=== PATIENT | male | born 1970 | race Caucasian/White ===

== ENCOUNTER → 2019-01-10 | Outpatient (CLI) | payer BC ==
[2019-01-10 16:43] LABS: T4, Free (Free Thyroxine) 1.1 ng/dL (0.80-1.80)
== END ==
LOC: LABWHC1 09:29
PROVIDERS: ATTEND Internal Medicine Endocrinology, Diabetes & Metabolism
DX: E05.90 Thyrotoxicosis, unspecified without thyrotoxic crisis or storm (principal)
CPT/HCPCS: 36415; 84439; 84443; 84445; 84480

== ENCOUNTER → 2019-01-23 | Outpatient (CLI) | payer BC ==
--- NOTE | 2019-01-23 12:11 | US ---
EXAMINATION TYPE: US thyroid st tissue head/neck DATE OF EXAM: 01/23/2019 COMPARISON: NONE CLINICAL HISTORY: E05.90 Subclinical hyperthyroidism. GLAND SIZE: Right Lobe: 4.5 x 1.4 x 1.8 cm Overall Parenchyma: heterogenous Left Lobe: 4.0 x 1.9 x 1.7 cm Overall Parenchyma: heterogeneous Isthmus Thickness: 0.4 cm NODULES RIGHT: # of nodules measured on right: 0 LEFT: # of nodules measured on left: 0 ISTHMUS: # of nodules measured in the isthmus: 0 Bilateral neck scanned, no evidence of lymphadenopathy. IMPRESSION: Heterogeneous thyroid tissue suggestive of thyroiditis.
--- NOTE | 2019-01-24 09:56 | NM ---
EXAMINATION TYPE: NM thyroid image w uptake DATE OF EXAM: 01/24/2019 COMPARISON: 01/23/2019 ultrasound HISTORY: Hyperthyroidism TECHNIQUE: Thyroid iodine uptake is calculated and images performed after the oral administration of 315 uCi 1-123 Capsule. FINDINGS: There is heterogeneous distribution of activity throughout the gland. The 4 hour iodine up take is calculated at 6.5% (normal range 8-14%). The 24-hour iodine uptake is calculated at 16.5% (no rmal range 15-35%). IMPRESSION: 1. Findings compatible with borderline hypothyroidism. 2. Heterogeneous uptake is compatible with the ultrasound findings of thyroiditis. No definite discre te hot or cold nodules.
== END ==
LOC: RADUSMAIN 08:27
PROVIDERS: ATTEND Internal Medicine Endocrinology, Diabetes & Metabolism
DX: E07.9 Disorder of thyroid, unspecified (principal); E05.90 Thyrotoxicosis, unspecified without thyrotoxic crisis or storm
CPT/HCPCS: 76536; 78014; A9516

== ENCOUNTER → 2019-05-18 | Outpatient (CLI) | payer BC | END | disposition home or self-care (01) | LOC: LABWHC1 10:18 | PROVIDERS: ATTEND Internal Medicine Endocrinology, Diabetes & Metabolism | DX: E05.90 Thyrotoxicosis, unspecified without thyrotoxic crisis or storm (principal) | CPT/HCPCS: 36415; 84439; 84443; 84480 ==

== ENCOUNTER → 2019-11-29 | Outpatient (CLI) | payer BC ==
[2019-11-29 19:11] LABS: T4, Free (Free Thyroxine) 1.4 ng/dL (0.80-1.80)
== END | disposition home or self-care (01) ==
LOC: LABWHC1 11:44
PROVIDERS: ATTEND Internal Medicine Endocrinology, Diabetes & Metabolism
DX: E05.90 Thyrotoxicosis, unspecified without thyrotoxic crisis or storm (principal)
CPT/HCPCS: 36415; 84439; 84443; 84480

== ENCOUNTER 2023-06-11 17:29 | Inpatient (IN) | payer BC ==
[2023-06-11] MEDS ORDERED: SODIUM CHLORIDE 0.9% 1,000 ML IV STA (17:32)
[2023-06-11] MEDS ORDERED: HEPARIN SODIUM 1,000 UN/ML (10ML VL) IV ONE ×2 (17:32→18:16)
[2023-06-11] MEDS ORDERED: VERAPAMIL 2.5 MG/ML 2 ML AMP ONE (17:43)
[2023-06-11] MEDS ORDERED: HEPARIN SODIUM 1,000 UN/ML (10ML VL) ONE (17:43)
[2023-06-11] MEDS ORDERED: fentaNYL (PF) 50 MCG/ML 2 ML AMP ONE (17:43)
[2023-06-11] MEDS ORDERED: IV FLUID CONTINUATION 1,000 ML IV ONE (17:46)
--- NOTE | 2023-06-11 17:53 | ED ---
General Adult HPI - General Chief complaint: Chest Pain Stated complaint: poss STEMI Source: patient, RN notes reviewed, old records reviewed Mode of arrival: EMS Limitations: no limitations - History of Present Illness Initial comments: Patient is a 53-year-old male who presents emergency Department as a STEMI activation. Patient is a history of atrial fibrillation, COPD has been having some dyspnea throughout the week but had sudden onset severe left-sided chest pain starting approximately an hour and a half ago. Was mowing the lawn when it started. His found him on the ground at home and they called EMS. EKG reveals atrial fibrillation with findings suspicious for STEMI with elevations in 2, 3, aVF with reciprocal depressions in 1 and aVL. STEMI pager was a ctivated prior to hospital arrival. I spoke with Dr. Graf who was in agreement with the plan. When patient arrived, was complaining of left sided chest pain. States it was sudden in onset. Describes it as a crushing chest pain. No radiation. Has not expenses pain previously. No history of cardiac stents. We have no prior EKG for comparison in our system. States he has been compliant with medications. Is on blood thinners for A. fib. To become diaphoretic when the chest pain started he states as well as mildly nauseous. Denies any other acute complaints at this time. Presents for further evaluation. - Related Data Home Medications Medication Instructions Recorded Confirmed Rivaroxaban [Xarelto] 20 mg PO DAILY 06/11/23 06/11/23 Sacubitril/Valsartan [Entresto 24 1 tab PO BID 06/11/23 06/11/23 mg-26 mg Tablet] carvediloL [Coreg] 25 mg PO BID-W/MEALS 06/11/23 06/11/23 Allergies Allergy/AdvReac Type Severity Reaction Status Date / Time No Known Allergies Allergy Verified 06/11/23 18:09 Review of Systems ROS Statement: Those systems with pertinent positive or pertinent negative responses have been documented in the HPI. Review of Systems: CONST: Denies fever EYES: Denies blurry vision ENT: Denies nasal congestion C/V: Endorses chest pain RESP: Denies shortness of breath GI: Denies abdominal pain : Denies dysuria SKIN: Denies rash. MSK: Denies joint pain. NEURO: Denies headache ROS Other: All systems not noted in ROS Statement are negative. Past Medical History Additional Past Medical History / Comment(s): a fib, Past Surgical History: Unable to Obtain Past Psychological History: Unable to Obtain Smoking Status: Current every day smoker Past Alcohol Use History: Unable to Obtain Past Drug Use History: Unable to Obtain General Exam - General Exam Comments Initial Comments: General: Appears in severe distress and discomfort. HEAD: Normal with no signs of head trauma. EYES: PERRLA, EOMI, conjunctiva normal, no discharge. ENT: Hearing grossly intact, normal oropharynx. RESPIRATORY: Clear breath sounds bilaterally. No wheezes, rales, or rhonchi. C/V: Irregular rate and rhythm. S1 and S2 auscultated, no edema, peripheral pulses 2+ and intact throughout ABD: Abd is soft, nontender, nondistended EXT: Normal range of motion, no obvious deformity SKIN: No rashes or lesions observed on exposed skin. NEURO: Alert and oriented 4. Limitations: no limitations Course Vital Signs 06/11/23 06/11/23 17:30 17:33 Temperature 96.9 F L Pulse Rate 150 H Pulse Rate [ 137 H Service Station Console Operator ] Respiratory 20 Rate Blood Pressure 95/65 Medical Decision Making - Medical Decision Making Was pt. sent in by a medical professional or institution (, PA, SOLAR MECHANICAL ENGINEER, urgent care, hospital, or alf...) When possible be specific @ -No Did you speak to anyone other than the patient for history (EMS, parent, family, police, friend...)? What history was obtained from this source @ -Spoke with EMS who corroborate the patient's history. Did you review nursing and triage notes (agree or disagree)? Why? @ -I reviewed and agree with nursing and triage notes Were old charts reviewed (outside hosp., previous admission, EMS record, old EKG, old radiological studies, urgent care reports/EKG's, alf records)? Report findings @ -Attempted to review old charts. No prior EKG for comparison. Differential Diagnosis (chest pain, altered mental status, abdominal pain women, abdominal pain men, vaginal bleeding, weakness, fever, dyspnea, syncope, headache, dizziness, GI bleed, back pain, seizure, CVA, palpatations, mental health, musculoskeletal)? @ -Differential Chest Pain: Stable Angina, Unstable Angina, STEMI, NSTEMI Aortic Dissection, Pneumothorax, Musculoskeletal, Esophageal Spasm GERD, Cholecystitis, Pancreatitis, Zoster, this is not meant to be an all-inclusive list. EKG interpreted by me (3pts min.). @ -As above X-rays interpreted by me (1pt min.). @ -Chest x-ray reveals no obvious acute cardio pulmonary process. CT interpreted by me (1pt min.). @ -None done U/S interpreted by me (1pt. min.). @ -None done What testing was considered but not performed or refused? (CT, X-rays, U/S, labs)? Why? @ -None What meds were considered but not given or refused? Why? @ -Consider nitroglycerin tablets over patient appears to have inferior wall MO and therefore we will avoid at this time to avoid rapidly reducing his preload. Did you discuss the management of the patient with other professionals (professionals i.e. , PA, SOLAR MECHANICAL ENGINEER, lab, RT, psych nurse, child welfare social worker, cue worker, teacher, business enterprise officer, case operator)? Give summary @ -Discussed with cardiology Dr. Graf who presented at bedside as well as over the phone was in agreement with plan for cardiac catheterization. Spoke with [facility] Dr. Peraza accepting physician who admitted the patient. Was smoking cessation discussed for >3mins.? @ -No Was critical care preformed (if so, how long)? @ -Yes, 15 minutes Were there social determinants of health that impacted care today? How? (Homelessness, low income, unemployed, alcoholism, drug addiction, transportation, low edu. Level, literacy, decrease access to med. care, halfway, rehab)? @ -No Was there de-escalation of care discussed even if they declined (Discuss DNR or withdrawal of care, Hospice)? DNR status @ -No What co-morbidities impacted this encounter? (DM, HTN, Smoking, COPD, CAD, Cancer, CVA, ARF, Chemo, Hep., AIDS, mental health diagnosis, sleep apnea, morbid obesity)? @ -History of atrial fibrillation, hypertension, hyperlipidemia, tobacco use Was patient admitted / discharged? Hospital course, mention meds given and route, prescriptions, significant lab abnormalities, going to OR and other pertinent info. @ -Based on the patient's presentation and physical exam, concern for STEMI prior to arrival. STEMI pager was activated approximately 10 minutes prior to patient's arrival in the emergency department based on EKG transferred by EMS as well as the patient's clinical symptoms. Upon presentation, repeat EKG demonstrates the acute A. fib with RVR but also findings concerning for inferior wall STEMI considering ST segment elevations in II, III, aVF and recipricol depressions in I and aVL. Dr. Graf presented bedside who agreed to take patient to [facility]. Patient already received 324 mg of aspirin from EMS. Patient will be bolused heparin, started on 1 L fluid bolus, we'll obtain basic labs. Patient was in agreement with this plan. Multiple IVs placed. Patient taken to [facility] in serious condition. Patient's laboratory studies returned after the patient to [facility]. Remarkable for undetectable troponin. Mild leukocytosis of 14. Patient discharged [facility] in serious condition at 1745. he will be admitted afterwards. Undiagnosed new problem with uncertain prognosis? @ -No Drug Therapy requiring intensive monitoring for toxicity (Heparin, Nitro, Insu caitlin, Cardizem)? @ -Heparin Were any procedures done? @ -No Diagnosis/symptom? @ -STEMI Acute, or Chronic, or Acute on Chronic? @ -Acute Uncomplicated (without systemic symptoms) or Complicated (systemic symptoms)? @ -Complicated Side effects of treatment? @ -No Exacerbation, Progression, or Severe Exacerbation? @ -No Poses a threat to life or bodily function? How? (Chest pain, [place], MO, pneumonia, PE, COPD, DKA, ARF, appy, cholecystitis, CVA, Diverticulitis, Homicidal, Suicidal, threat to staff... and all critical care pts) @ -Yes Diagnosis/symptom? @ -Atrial fibrillation Acute, or Chronic, or Acute on Chronic? @ -Acute on chronic Uncomplicated (without systemic symptoms) or Complicated (systemic symptoms)? @ -Complicated Side effects of treatment? @ -none Exacerbation, Progression, or Severe Exacerbation] @ -no Poses a threat to life or bodily function? @ -no - Lab Data Result diagrams: 06/11/23 19:43 06/11/23 17:41 Lab Results 06/11/23 06/11/23 06/11/23 Range/Units 17:41 17:41 17:41 WBC 14.5 H (3.8-10.6) k/uL RBC 5.01 (4.30-5.90) m/uL Hgb 16.8 (13.0-17.5) gm/dL Hct 50.3 (39.0-53.0) % MCV 100.3 H (80.0-100.0) fL MCH 33.4 (25.0-35.0) pg MCHC 33.3 (31.0-37.0) g/dL RDW 13.7 (11.5-15.5) % Plt Count 198 (150-450) k/uL MPV 8.8 Neutrophils % 74 % Lymphocytes % 18 % Monocytes % 5 % Eosinophils % 2 % Basophils % 0 % Neutrophils # 10.7 H (1.3-7.7) k/uL Lymphocytes # 2.6 (1.0-4.8) k/uL Monocytes # 0.7 (0-1.0) k/uL Eosinophils # 0.2 (0-0.7) k/uL Basophils # 0.1 (0-0.2) k/uL Macrocytosis Slight PT 13.3 H (9.0-12.0) sec INR 1.3 H (<1.2) APTT 29.1 (22.0-30.0) sec Sodium 139 (137-145) mmol/L Potassium 4.2 (3.5-5.1) mmol/L Chloride 105 (98-107) mmol/L Carbon Dioxide 22 (22-30) mmol/L Anion Gap 12 mmol/L BUN 19 (9-20) mg/dL Creatinine 1.13 (0.66-1.25) mg/dL Est GFR (CKD-EPI)AfAm 85 (>60 ml/min/1.73 sqM) Est GFR (CKD-EPI)NonAf 74 (>60 ml/min/1.73 sqM) Glucose 123 H (74-99) mg/dL Calcium 10.0 (8.4-10.2) mg/dL Magnesium 2.0 (1.6-2.3) mg/dL Total Bilirubin 1.9 H (0.2-1.3) mg/dL AST 29 (17-59) U/L ALT 18 (4-49) U/L Alkaline Phosphatase 87 (38-126) U/L Troponin I (0.000-0.034) ng/mL Total Protein 8.9 H (6.3-8.2) g/dL Albumin 4.9 (3.5-5.0) g/dL 06/11/23 Range/Units 17:41 WBC (3.8-10.6) k/uL RBC (4.30-5.90) m/uL Hgb (13.0-17.5) gm/dL Hct (39.0-53.0) % MCV (80.0-100.0) fL MCH (25.0-35.0) pg MCHC (31.0-37.0) g/dL RDW (11.5-15.5) % Plt Count (150-450) k/uL MPV Neutrophils % % Lymphocytes % % Monocytes % % Eosinophils % % Basophils % % Neutrophils # (1.3-7.7) k/uL Lymphocytes # (1.0-4.8) k/uL Monocytes # (0-1.0) k/uL Eosinophils # (0-0.7) k/uL Basophils # (0-0.2) k/uL Macrocytosis PT (9.0-12.0) sec INR (<1.2) APTT (22.0-30.0) sec Sodium (137-145) mmol/L Potassium (3.5-5.1) mmol/L Chloride (98-107) mmol/L Carbon Dioxide (22-30) mmol/L Anion Gap mmol/L BUN (9-20) mg/dL Creatinine (0.66-1.25) mg/dL Est GFR (CKD-EPI)AfAm (>60 ml/min/1.73 sqM) Est GFR (CKD-EPI)NonAf (>60 ml/min/1.73 sqM) Glucose (74-99) mg/dL Calcium (8.4-10.2) mg/dL Magnesium (1.6-2.3) mg/dL Total Bilirubin (0.2-1.3) mg/dL AST (17-59) U/L ALT (4-49) U/L Alkaline Phosphatase (38-126) U/L Troponin I <0.012 (0.000-0.034) ng/mL Total Protein (6.3-8.2) g/dL Albumin (3.5-5.0) g/dL - EKG Data -: EKG Interpreted by Me EKG Comments: 12-lead Electrocardiogram Interpretation Note EKG was reviewed and interpreted by myself. 12-lead ECG performed at 1733 is interpreted by me as revealing A. fib with RVR with findings concerning for STEMI at a rate of 148 beats per minute. Left axis deviation. QRS durations 126 ms, QTc is 376 ms.. There appeared to be ST segment elevations in leads II, III, aVF as well as reciprocal depressions in leads aVL, I. . By my interpretation, this EKG is concerning for what appears to be A. fib with RVR but also acute STEMI considering the elevations and reciprocal depressions. No prior EKG for comparison.. Critical Care Time Critical Care Time: Yes Total Critical Care Time: 15 Disposition Clinical Impression: ST elevation myocardial infarction (STEMI), Atrial fibrillation Disposition: ADMITTED IP TO THIS HOSP Condition: Serious Time of Disposition: 17:45
[2023-06-11] MEDS ORDERED: LIDOCAINE 2% (PF) 20 MG/ML 5 ML VIAL SQ ONE (18:01)
[2023-06-11] MEDS ORDERED: LIDOCAINE 2% SYG (PF) 100 MG/5 ML MISCELLANE ONE (18:05)
[2023-06-11] MEDS ORDERED: NALOXONE 0.4 MG/ML 1 ML VIAL IV PRN (18:08)
[2023-06-11] MEDS ORDERED: METOPROLOL TARTRATE 5 MG/5 ML VIAL IVP ONE ×2 (18:13→18:20)
[2023-06-11] MEDS ORDERED: PRASUGREL 10 MG TAB ONE (18:17)
--- NOTE | 2023-06-11 18:18 | XR ---
EXAM: XR Chest, 1 View CLINICAL HISTORY: ITS.REASON XR Reason: chest pain TECHNIQUE: Frontal view of the chest. COMPARISON: No relevant prior studies available. FINDINGS: Lungs: Clear lungs. Pleural space: Unremarkable. No pleural effusion or pneumothorax. Heart: Cardiomegaly. No vascular congestion. Bones/joints: No acute fracture. No dislocation. Tubes, lines and devices: Left chest wall AICD-pacemaker with leads extending to the right atrium and right ventricle. IMPRESSION: No acute findings in the chest.
[2023-06-11 18:19] LABS: Basophils # (A) 0.1 k/uL (0-0.2); Basophils % (A) 0 %; Eosinophils # (A) 0.2 k/uL (0-0.7); Eosinophils % (A) 2 %; HCT 50.3 % (39.0-53.0); HGB 16.8 gm/dL (13.0-17.5); Lymphocytes # (A) 2.6 k/uL (1.0-4.8); Lymphocytes % (A) 18 %; MCH 33.4 pg (25.0-35.0); MCHC 33.3 g/dL (31.0-37.0); MCV 100.3 fL (80.0-100.0); Macrocytosis Slight; Mean Platelet Volume 8.8; Monocytes # (A) 0.7 k/uL (0-1.0); Monocytes % (A) 5 %; Neutrophils # (A) 10.7 k/uL (1.3-7.7); Neutrophils % (A) 74 %; Platelet Count 198 k/uL (150-450); RBC 5.01 m/uL (4.30-5.90); RDW 13.7 % (11.5-15.5); WBC 14.5 k/uL (3.8-10.6)
[2023-06-11] MEDS ORDERED: DEXTROSE 5% IN WATER 100 ML with AMIODARONE 150 MG IV ONE (18:25)
[2023-06-11 18:27] LABS: INR 1.3 (<1.2); Prothrombin Time 13.3 sec (9.0-12.0)
[2023-06-11 18:28] LABS: Partial Thromboplastin Time 29.1 sec (22.0-30.0)
[2023-06-11] MEDS ORDERED: NOREPINEPHRINE 4 MG in SODIUM CHLORIDE 0.9% 250 ML IV ONE (18:30)
[2023-06-11 18:34] LABS: ALT 18 U/L (4-49); AST 29 U/L (17-59); African American GFR (CKD) 85 (>60 ml/min/1.73 sqM); Albumin 4.9 g/dL (3.5-5.0); Alkaline Phosphatase 87 U/L (38-126); Anion Gap 12 mmol/L; Blood Urea Nitrogen 19 mg/dL (9-20); Carbon Dioxide 22 mmol/L (22-30); Chloride 105 mmol/L (98-107); Glucose 123 mg/dL (74-99); Non-African American GFR(CKD) 74 (>60 ml/min/1.73 sqM); Potassium 4.2 mmol/L (3.5-5.1); Sodium 139 mmol/L (137-145); Total Bilirubin 1.9 mg/dL (0.2-1.3); Total Protein 8.9 g/dL (6.3-8.2)
[2023-06-11] MEDS ORDERED: IOPAMIDOL-370 100ML BTL INJ ONE ×2 (18:42→18:52)
[2023-06-11] MEDS ORDERED: PRASUGREL 10 MG TAB PO ONE (18:42)
[2023-06-11] MEDS ORDERED: AMIODARONE 360 MG in DEXTROSE 5% IN WATER 200 ML IV ONE ×2 (19:00)
[2023-06-11] MEDS ORDERED: ATROPINE SULFATE 0.1 MG/ML 10ML SYRINGE IV PRN (19:09)
[2023-06-11] MEDS ORDERED: RX INFO: IV CONTRAST WAS GIVEN 1 EACH MISC MISCELLANE PRN (19:09)
[2023-06-11] MEDS ORDERED: NITROGLYCERIN SL TABS 0.4 MG TAB SUBLINGUAL PRN (19:09)
[2023-06-11] MEDS ORDERED: MAG HYDROX/AL HYDROX/SIMETH 30 ML CUP PO PRN (19:09)
[2023-06-11] MEDS ORDERED: SODIUM CHLORIDE 0.9% 1,000 ML in EMPTY BAG 1 BAG IV SCH (19:15)
[2023-06-11 19:19] LABS: Glucose,Whole Blood 84 mg/dL (70-110)
--- NOTE | 2023-06-11 19:19 | P.CRDCN ---
History of Present Illness Consult date: 06/11/23 History of present illness: History of Present Illness: The patient is a 53-year-old male with a known history of nonischemic dilated cardiomyopathy, felt to be related to alcohol intake, followed on a regular basis by Dr. Ramires who presented with symptoms of acute chest discomfort, dyspnea and his EKG showed atrial fibrillation which is chronic in addition to runs of nonsustained VT. Patient has no prior history of obstructive CAD, he has been more dyspneic over the last week and today while outdoor had the episode of discomfort was severe dyspnea. On presentation his blood pressure was low, he was in atrial fibrillation that has been diagnosed many years ago and had episodes of nonsustained ventricular tachycardia. He is status post ICD implantation and according to him his ejection fraction is in the 20%. He denies any peripheral edema, PND or orthopnea. He feels the palpitations at time but had no recent discharge from the device. He has stopped his alcohol intake a while ago but smokes about a pack a day. He has no history of diabetes and his lipid profile is not available. He does not recall having a cardiac catheterization in the past. Medications: Carvedilol 25 mg twice a day, Entresto 2429 milligrams twice a day, Xarelto 20 mg daily Review of Systems: Respiratory: He has chronic dyspnea on exertion, worse recently and chronic to bacco use GI: No nausea or vomiting . No history of peptic ulcer disease. No recent GI bleed. : No hematuria or dysuria. Nervous System: No stroke or seizure. Physical Examination: 53-year-old male, alert and oriented in moderate dyspnea ,Blood pressure 95/60, Heart rate 120 Head: Normocephalic. Eyes: Sclerae nonicteric. Neck: Good carotid upstroke, no bruit, no jugular venous distention. Lungs: Decreased breath sounds bilaterally Heart: Irregular rate and rhythm, S1-S2, no S3, no rub. Systolic ejection murmur. Abdomen: Soft nontender, positive bowel sounds no organomegaly. Extremities: No edema, intact distal pulses. Labs: Hemoglobin 16.8, potassium 4.2, BUN 19, creatinine 1.23, troponin less than 0.012. Chest x-ray with no acute infiltrate EKG: Atrial fibrillation with frequent runs of nonsustained ventricular tachycardia and nonspecific ST-T wave changes Impression: 1. Acute myocardial infarction, probably inferior 2. Known history of nonischemic dilated cardiomyopathy 3. Status post ICD implantation 4. Chronic persistent atrial fibrillation, anticoagulated 5. Nonsustained ventricular tachycardia in a setting of an acute ischemic event 6. Chronic tobacco use 7. Remote history of alcoholism Plan: 1. Proceed with emergent cardiac catheterization, the procedure as well as the risks and the complications were discussed with the patient who is in agreement 2. Obtain an echocardiogram with Doppler 3. Depending on his progress further recommendations will be made 4. Prognosis is guarded 5. Smoking cessation 6. Thank you for this consult we will follow with you Past Medical History Additional Past Medical History / Comment(s): a fib, Past Surgical History: Unable to Obtain Past Psychological History: Unable to Obtain Smoking Status: Current every day smoker Past Alcohol Use History: Unable to Obtain Past Drug Use History: Unable to Obtain Medications and Allergies Home Medications Medication Instructions Recorded Confirmed Type Rivaroxaban [Xarelto] 20 mg PO DAILY 06/11/23 06/11/23 History Sacubitril/Valsartan [Entresto 24 1 tab PO BID 06/11/23 06/11/23 History mg-26 mg Tablet] carvediloL [Coreg] 25 mg PO BID-W/MEALS 06/11/23 06/11/23 History Allergies Allergy/AdvReac Type Severity Reaction Status Date / Time No Known Allergies Allergy Verified 06/11/23 18:09 Physical Exam Vitals: Vital Signs Temp Pulse Pulse Resp BP Pulse Ox 06/11/23 17:45 134 H 22 102/91 94 L 06/11/23 17:33 137 H 06/11/23 17:30 96.9 F L 150 H 20 95/65 Intake and Output 06/11/23 06/11/23 06/11/23 06:59 14:59 22:59 Intake Total 449 Balance 449 Intake: IV 449 Other: Weight 99.79 kg Results 06/11/23 17:41 06/11/23 17:41 Cardiac Enzymes 06/11/23 06/11/23 Range/Units 17:41 17:41 AST 29 (17-59) U/L Troponin I <0.012 (0.000-0.034) ng/mL Coagulation 06/11/23 Range/Units 17:41 PT 13.3 H (9.0-12.0) sec APTT 29.1 (22.0-30.0) sec CBC 06/11/23 Range/Units 17:41 WBC 14.5 H (3.8-10.6) k/uL RBC 5.01 (4.30-5.90) m/uL Hgb 16.8 (13.0-17.5) gm/dL Hct 50.3 (39.0-53.0) % Plt Count 198 (150-450) k/uL Comprehensive Metabolic Panel 06/11/23 Range/Units 17:41 Sodium 139 (137-145) mmol/L Potassium 4.2 (3.5-5.1) mmol/L Chloride 105 (98-107) mmol/L Carbon Dioxide 22 (22-30) mmol/L BUN 19 (9-20) mg/dL Creatinine 1.13 (0.66-1.25) mg/dL Glucose 123 H (74-99) mg/dL Calcium 10.0 (8.4-10.2) mg/dL AST 29 (17-59) U/L ALT 18 (4-49) U/L Alkaline Phosphatase 87 (38-126) U/L Total Protein 8.9 H (6.3-8.2) g/dL Albumin 4.9 (3.5-5.0) g/dL Current Medications Generic Name Dose Route Start Last Admin Trade Name Freq PRN Reason Stop Dose Admin Amiodarone HCl 360 mg/ 200 mls @ 33.333 mls/hr 06/11/23 19:00 06/11/23 18:47 Dextrose/Water IV 06/12/23 00:59 25 mls .Q6H ONE Administration Protocol 1 MG/MIN Amiodarone HCl 450 mg/ 250 mls @ 16.667 mls/hr 06/12/23 01:00 Dextrose/Water IV 06/12/23 18:59 .Q15H PRAVEEN Protocol 0.5 MG/MIN Naloxone HCl 0.2 mg 06/11/23 18:08 Naloxone 0.4 Mg/Ml 1 Ml Vial IV Q2M PRN Opioid Reversal Intake and Output 06/11/23 06/11/23 06/11/23 06:59 14:59 22:59 Intake Total 449 Balance 449 Intake: IV 449 Other: Weight 99.79 kg Patient Weight 06/12/23 06:59 Weight 99.79 kg 06/11/23 17:41 06/11/23 17:41
--- NOTE | 2023-06-11 19:28 | P.CARDCATH ---
Date of Procedure: 06/11/23 Description of Procedure: Cardiac Catheterization: The patient is a 53-year-old male with known history of nonischemic dilated cardiomyopathy, chronic atrial fibrillation and ICD implantation who presented with acute chest discomfort, episodes of nonsustained VT and evidence of ACS was probable inferior wall STEMI. Recommendations were made regarding cardiac catheterization, the risks and the complications were discussed with the patient who is in full understanding and agreement. Procedure Description: Patient was brought to slab off mill tender in fasting semi-sedated state after receiving Fentanyl and Benadryl achieiving moderate conscious sedated state. Using Xylocaine Anesthesia and Seldinger technique, a 6-S[place] sheath was introduced in the right femoral artery using micropuncture technique. Attempt to cannulate the right radial artery were unsuccessful in advancing the wire . Subsequently, selective coronary angiography was performed using a 6-[place] 4 bend Kemar catheter and a 6-S[place] Arabian FR 4 guiding catheter. Images of the right coronary artery were performed first and after performing angioplasty and stenting images of the left system were performed. Multiple views of the coronary artery including hemiaxial views were obtained. The 6-[place] pigtail catheter was used to cross the aortic valve and LVEDP was calculated. PCI: Using the guiding catheter a 0.014 BMW J-wire was positioned in the distal RCA subsequently 2.5 x 12 mm Treck advanced and inflation at 8 mira was done. Sub sequently a [email or web address] intravascular ultrasound catheter was introduced and images were obtained. After removing the catheter 3.5 x 23 mm Xience obdulio point stent was deployed at 16 mira, after moving the balloon a 4.0 x 15 mm Xience obdulio point stent was deployed more proximal at 16 mira. Subsequently repeat intravascular ultrasound imaging was performed and subsequent to that a 4.0 x 20 mm NC Treck balloon was advanced and inflations in the proximal and distal stent at 12 mira were done. After removing the wire images were obtained and revealed stable successful stenting. Subsequently images of the left system were performed. Following that, catheter and sheath were removed. Hemostasis was obtained with deployment of an Angio-Seal. There was no immediate complication. Patient was returned to room in stable condition. Of note, the patient received a total of 7000 units of intravenous heparin as well as a loading dose of Effient. His ACT was followed. At the end of the procedure his chest discomfort resolved. His ventricular ectopic activity improved after receiving Cordarone. He was started on norepinephrine because of his hypotension that improved at the end of the procedure. Findings: Left main: This is a large size vessel, trifurcating into LAD and left circumflex, left main has no obstructive disease LAD: This is a large size vessel, reaching to the apex with a wraparound apex segment, giving rise to a large diagonal branch, the LAD has no obstructive disease Left circumflex: This is a large nondominant vessel, giving rise to 2 obtuse marginal branch that have no obstructive disease RCA: This vessel is totally occluded proximally with no antegrade flow Left Ventriculogram: Not performed Hemodynamics: There was no gradient across the aortic valve, LVEDP was 18-22 mmHg Conclusion: 1. Acutely occluded proximal RCA 2. No obstructive disease in the LAD and left circumflex 3. Elevated LVEDP 4. Successful stenting of the proximal RCA with reduction of stenosis from 100% to less than 5% with intravascular ultrasound imaging Recommendations: The patient will continue on aspirin and Effient for 1 week then he will stop his aspirin and continue on Effient and anticoagulation for one year in addition to aggressive coronary risks modifications and smoking cessation. The findings and the recommendations were discussed with the patient and the family and they were in full understanding and agreement. Duration of sedation is 57 minutes.
[2023-06-11 20:22] LABS: Basophils # (A) 0.1 k/uL (0-0.2); Basophils % (A) 0 %; Eosinophils # (A) 0.1 k/uL (0-0.7); Eosinophils % (A) 1 %; HCT 45.5 % (39.0-53.0); HGB 14.6 gm/dL (13.0-17.5); Lymphocytes # (A) 1.9 k/uL (1.0-4.8); Lymphocytes % (A) 13 %; MCH 32.8 pg (25.0-35.0); MCV 102.4 fL (80.0-100.0); Macrocytosis Slight; Mean Platelet Volume 8.7; Monocytes # (A) 0.7 k/uL (0-1.0); Monocytes % (A) 5 %; Neutrophils # (A) 11.2 k/uL (1.3-7.7); Neutrophils % (A) 80 %; Platelet Count 182 k/uL (150-450); RBC 4.45 m/uL (4.30-5.90); RDW 13.6 % (11.5-15.5); WBC 14.1 k/uL (3.8-10.6)
[2023-06-11] MEDS: ATORVASTATIN 80 MG TAB PO SCH (20:59)
[2023-06-11] MEDS: DAPAGLIFLOZIN PROPANEDIOL 10 MG TABLET PO SCH (20:59)
[2023-06-11] MEDS: METOPROLOL TARTRATE 25 MG TAB PO SCH (20:59)
--- NOTE | 2023-06-11 21:00 | P.HPIM ---
History of Present Illness H&P Date: 06/11/23 Chief Complaint: Chest pain 53-year-old male, history of atrial fibrillation presents emergency Department as a STEMI activation. Patient is a history of atrial fibrillation, COPD has been having some dyspnea throughout the week but had sudden onset severe left- sided chest pain starting approximately an hour and a half ago. Was mowing the lawn when it started. His found him on the ground at home and they called EMS. EKG reveals atrial fibrillation with findings suspicious for STEMI with elevations in 2, 3, aVF with reciprocal depressions in 1 and aVL. STEMI pager was activated prior to hospital arrival. Upon arrival patient was complaining of left sided chest pain. States it was sudden in onset. Describes it as a crushing chest pain. No radiation. Has not expenses pain previously. No history of cardiac stents. We have no prior EKG for comparison in our system. States he has been compliant with medications. Is on blood thinners for A. fib. To become diaphoretic when the chest pain started he states as well as mildly nauseous. Denies any other acute complaints at this time. Patient is planned to be taken to cath, lab. Patient received aspirin 324 mg from EMS; bolused with IV heparin infusion -- Blood work review. CBC of 14.1, hemoglobin of 14.6 and platelet count of 182, sodium 139, potassium 4.2, BUN/creatinine of 19/1.13 and blood glucose of 123, total bilirubin elevated at 1.9, troponin less than 0.012 Review of Systems REVIEW OF SYSTEMS: CONSTITUTIONAL: No fever, no malaise, no fatigue. HEENT: No recent visual problems or hearing problems. Denied any sore throat. CARDIOVASCULAR: chest pain, no orthopnea, PND, no palpitations, no syncope. PULMONARY: No shortness of breath, no cough, no hemoptysis. GASTROINTESTINAL: No diarrhea, no nausea, no vomiting, no abdominal pain. NEUROLOGICAL: No headaches, no weakness, no numbness. HEMATOLOGICAL: Denies any bleeding or petechiae. GENITOURINARY: Denies any burning micturition, frequency, or urgency. MUSCULOSKELETAL/RHEUMATOLOGICAL: Denies any joint pain, swelling, or any muscle pain. ENDOCRINE: Denies any polyuria or polydipsia. The rest of the 14-point review of systems is negative. Past Medical History Additional Past Medical History / Comment(s): a fib, Past Surgical History: Unable to Obtain Past Psychological History: Unable to Obtain Smoking Status: Current every day smoker Past Alcohol Use History: Unable to Obtain Past Drug Use History: Unable to Obtain Medications and Allergies Home Medications Medication Instructions Recorded Confirmed Type Rivaroxaban [Xarelto] 20 mg PO DAILY 06/11/23 06/11/23 History Sacubitril/Valsartan [Entresto 24 1 tab PO BID 06/11/23 06/11/23 History mg-26 mg Tablet] carvediloL [Coreg] 25 mg PO BID-W/MEALS 06/11/23 06/11/23 History Allergies Allergy/AdvReac Type Severity Reaction Status Date / Time No Known Allergies Allergy Verified 06/11/23 18:09 Physical Exam Vitals: Vital Signs Temp Pulse Pulse Resp BP Pulse Ox 06/11/23 17:45 134 H 22 102/91 94 L 06/11/23 17:33 137 H 06/11/23 17:30 96.9 F L 150 H 20 95/65 Intake and Output 06/11/23 06/11/23 06/11/23 06:59 14:59 22:59 Intake Total 400 Balance 400 Intake: IV 400 Other: Weight 99.79 kg General: Appears in severe distress and discomfort. HEAD: Normal with no signs of head trauma. EYES: PERRLA, EOMI, conjunctiva normal, no discharge. ENT: Hearing grossly intact, normal oropharynx. RESPIRATORY: Clear breath sounds bilaterally. No wheezes, rales, or rhonchi. C/V: Irregular rate and rhythm. S1 and S2 auscultated, no edema, peripheral pulses 2+ and intact throughout ABD: Abd is soft, nontender, nondistended EXT: Normal range of motion, no obvious deformity SKIN: No rashes or lesions observed on exposed skin. NEURO: Alert and oriented 4. Results CBC & Chem 7: 06/11/23 19:43 06/11/23 17:41 Labs: Abnormal Lab Results - Last 24 Hours (Table) 06/11/23 06/11/23 06/11/23 Range/Units 17:41 17:41 17:41 WBC 14.5 H (3.8-10.6) k/uL MCV 100.3 H (80.0-100.0) fL Neutrophils # 10.7 H (1.3-7.7) k/uL PT 13.3 H (9.0-12.0) sec INR 1.3 H (<1.2) Glucose 123 H (74-99) mg/dL Total Bilirubin 1.9 H (0.2-1.3) mg/dL Total Protein 8.9 H (6.3-8.2) g/dL Assessment and Plan Assessment: Acute STEMI - Patient was bolused with IV heparin and taken to [facility]; cardiac catheterization reveals acutely occluded proximal RCA, no obstructive disease in LAD and left circumflex, elevated LVEDP; patient has undergone successful stenting of proximal RCA with reduction of stenosis from 100% and less than 5% with intravascular ultrasound imaging - Patient to continue aspirin and Effient for one week after which he is r ecommended to stop aspirin and continue Effient and anticoagulation for one year along with aggressive risk factor modification and smoking cessation - Patient has been placed on Lipitor 80 mg by mouth daily at bedtime; farxiga 10 mg daily, metoprolol 25 mg twice a day Atrial fibrillation; patient has been placed on metoprolol 25 mg twice a day; anticoagulation with Xarelto History of nonischemic dilated cardiomyopathy; status post ICD implantation Chronic tobacco abuse DVT prophylaxis; SCDs/systemic anticoagulation CODE STATUS; full code
[2023-06-11 21:01] LABS: ALT 38 U/L (4-49); AST 277 U/L (17-59); African American GFR (CKD) >90 (>60 ml/min/1.73 sqM); Albumin 3.7 g/dL (3.5-5.0); Alkaline Phosphatase 76 U/L (38-126); Anion Gap 12 mmol/L; Blood Urea Nitrogen 17 mg/dL (9-20); Carbon Dioxide 17 mmol/L (22-30); Chloride 109 mmol/L (98-107); Glucose 126 mg/dL (74-99); Non-African American GFR(CKD) 82 (>60 ml/min/1.73 sqM); Potassium 4.3 mmol/L (3.5-5.1); Sodium 138 mmol/L (137-145); Total Bilirubin 1.5 mg/dL (0.2-1.3)
[2023-06-11] MEDS ORDERED: NOREPINEPHRINE 4 MG in SODIUM CHLORIDE 0.9% 250 ML IV SCH (22:00)
[2023-06-11 22:49] LABS: Glucose,Whole Blood 120 mg/dL (70-110)
[2023-06-12] MEDS: ZOLPIDEM 5 MG TAB PO PRN ×2 (00:55→21:30)
[2023-06-12] MEDS ORDERED: AMIODARONE 450 MG in DEXTROSE 5% IN WATER 250 ML IV SCH ×2 (01:00)
[2023-06-12 04:56] LABS: Basophils % (A) 0 %; Eosinophils # (A) 0.2 k/uL (0-0.7); Eosinophils % (A) 1 %; HCT 44.7 % (39.0-53.0); HGB 14.8 gm/dL (13.0-17.5); Lymphocytes # (A) 1.8 k/uL (1.0-4.8); Lymphocytes % (A) 13 %; MCH 33.8 pg (25.0-35.0); MCHC 33.1 g/dL (31.0-37.0); MCV 101.9 fL (80.0-100.0); Macrocytosis Slight; Mean Platelet Volume 8.5; Monocytes # (A) 0.6 k/uL (0-1.0); Monocytes % (A) 5 %; Neutrophils # (A) 10.9 k/uL (1.3-7.7); Neutrophils % (A) 80 %; Platelet Count 172 k/uL (150-450); RBC 4.39 m/uL (4.30-5.90); RDW 14.1 % (11.5-15.5); WBC 13.6 k/uL (3.8-10.6)
[2023-06-12 05:17] LABS: African American GFR (CKD) >90 (>60 ml/min/1.73 sqM); Anion Gap 9 mmol/L; Blood Urea Nitrogen 18 mg/dL (9-20); Calcium 9.1 mg/dL (8.4-10.2); Carbon Dioxide 21 mmol/L (22-30); Chloride 107 mmol/L (98-107); Glucose 125 mg/dL (74-99); Non-African American GFR(CKD) >90 (>60 ml/min/1.73 sqM); Potassium 4.5 mmol/L (3.5-5.1); Sodium 137 mmol/L (137-145)
[2023-06-12 09:03] LABS: Chol/HDL Ratio 3.65 Ratio; LDL Cholesterol,Calculated 94.3 mg/dL (0.0-131.0); VLDL Calculation 18.22 mg/dL (5.00-40.00)
--- NOTE | 2023-06-12 09:04 | P.PN ---
Subjective Progress Note Date: 06/12/23 PROGRESS NOTE The patient is a 53-year-old male with known history of dilated nonischemic cardiomyopathy, chronic persistent atrial fibrillation, ICD implantation and chronic tobacco use who presented with an acute inferior wall myocardial infarction and episodes of nonsustained VT. He underwent cardiac catheterization and stenting of the RCA. He has no further chest discomfort. He has no episodes of ventricle tachycardia with occasional PVCs. He continues to be in atrial fibrillation with controlled ventricular response. He denies any nausea or vomiting. He has some abdominal discomfort. He has no dizziness. His breathing is stable. He is off norepinephrine and continues to be on IV amiodarone Medications: Aspirin 81 mg daily, Lipitor 80 mg daily, Lopressor 25 mg twice a day, Aldactone 25 mg daily, Effient 10 mg daily, Xarelto 20 mg daily, Farxiga 10 mg daily, IV amiodarone PHYSICAL EXAMINATION: Blood pressure 110/90 heart rate 69 LUNGS: Clear to auscultation HEART: Irregular rate and rhythm, S1, S2. No S3. Systolic ejection murmur ABDOMEN: Soft, nontender, no organomegaly EXTREMETIES: No edema, right groin no hematoma LAB: Hemoglobin 13.6, potassium 4.5, BUN 18, creatinine 0.95. Peak troponin 108 IMPRESSION: 1. Status post acute inferior wall myocardial infarction stenting of the RCA 2. History of dilated nonischemic cardiomyopathy could be alcoholic 3. Status post ICD implantation 4. Chronic persistent atrial fibrillation 5. Post ICD implantation PLAN: 1. Stop IV amiodarone 2. Obtain an echocardiogram with Doppler 3. Increase physical activity 4. Follow renal functions 5. If blood pressure is stable restart Entresto and change to metoprolol succinate 6. Depending on his progress further recommendations will be made Objective - Vital Signs Vital signs: Vital Signs Temp 97.9 F 06/12/23 04:00 Pulse 69 06/12/23 08:00 Resp 16 06/12/23 08:00 BP 110/92 06/12/23 08:00 Pulse Ox 99 06/12/23 08:00 FiO2 Intake & Output 06/11/23 06/12/23 06/12/23 18:59 06:59 18:59 Intake Total 449 2865.491 414.447 Output Total 175 0 Balance 449 2690.491 414.447 Weight 99.79 kg 97.4 kg Intake: IV 449 2720 270 Amiodarone 360 mg In 1000 Dextrose 5% in Water 200 ml @ 1 MG/MIN 33.333 mls/ hr IV .Q6H [facility] Rx#: [id number] Amiodarone 450 mg In 1500 250 Dextrose 5% in Water 250 ml @ 0.5 MG/MIN 16.667 mls/hr IV .Q15H [facility] Rx#: [id number] KVO 220 20 Intake, IV Titration 145.491 144.447 Amount Amiodarone 450 mg In 144.447 Dextrose 5% in Water 250 ml @ 0.5 MG/MIN 16.667 mls/hr IV .Q15H [facility] Rx#: [id number] Norepinephrine 4 mg In 145.491 Sodium Chloride 0.9% 250 ml @ 0.03 MCG/KG/MIN 11. 406 mls/hr IV .[id number] [facility] Rx#:[id number] Output: Urine 175 0 Other: Voiding Method Urinal - Labs CBC & Chem 7: 06/12/23 04:38 06/12/23 04:38 Labs: Abnormal Lab Results - Last 24 Hours (Table) 06/11/23 06/11/23 06/11/23 Range/Units 17:41 17:41 17:41 WBC 14.5 H (3.8-10.6) k/uL MCV 100.3 H (80.0-100.0) fL Neutrophils # 10.7 H (1.3-7.7) k/uL PT 13.3 H (9.0-12.0) sec INR 1.3 H (<1.2) Chloride (98-107) mmol/L Carbon Dioxide (22-30) mmol/L Glucose 123 H (74-99) mg/dL POC Glucose (mg/dL) (70-110) mg/dL Total Bilirubin 1.9 H (0.2-1.3) mg/dL AST (17-59) U/L Troponin I (0.000-0.034) ng/mL Total Protein 8.9 H (6.3-8.2) g/dL 06/11/23 06/11/23 06/11/23 Range/Units 19:43 19:43 19:43 WBC 14.1 H (3.8-10.6) k/uL MCV 102.4 H (80.0-100.0) fL Neutrophils # 11.2 H (1.3-7.7) k/uL PT (9.0-12.0) sec INR (<1.2) Chloride 109 H (98-107) mmol/L Carbon Dioxide 17 L (22-30) mmol/L Glucose 126 H (74-99) mg/dL POC Glucose (mg/dL) (70-110) mg/dL Total Bilirubin 1.5 H (0.2-1.3) mg/dL AST 277 H (17-59) U/L Troponin I 6.650 H* (0.000-0.034) ng/mL Total Protein (6.3-8.2) g/dL 06/11/23 06/11/23 06/12/23 Range/Units 22:47 23:17 04:38 WBC 13.6 H (3.8-10.6) k/uL MCV 101.9 H (80.0-100.0) fL Neutrophils # 10.9 H (1.3-7.7) k/uL PT (9.0-12.0) sec INR (<1.2) Chloride (98-107) mmol/L Carbon Dioxide (22-30) mmol/L Glucose (74-99) mg/dL POC Glucose (mg/dL) 120 H (70-110) mg/dL Total Bilirubin (0.2-1.3) mg/dL AST (17-59) U/L Troponin I 108.000 H* (0.000-0.034) ng/mL Total Protein (6.3-8.2) g/dL 06/12/23 Range/Units 04:38 WBC (3.8-10.6) k/uL MCV (80.0-100.0) fL Neutrophils # (1.3-7.7) k/uL PT (9.0-12.0) sec INR (<1.2) Chloride (98-107) mmol/L Carbon Dioxide 21 L (22-30) mmol/L Glucose 125 H (74-99) mg/dL POC Glucose (mg/dL) (70-110) mg/dL Total Bilirubin (0.2-1.3) mg/dL AST (17-59) U/L Troponin I (0.000-0.034) ng/mL Total Protein (6.3-8.2) g/dL
[2023-06-12] MEDS ORDERED: FUROSEMIDE 10 MG/ML 2 ML VIAL IV ONE (09:16)
[2023-06-12] MEDS: PRASUGREL 10 MG TAB PO SCH (09:37)
[2023-06-12] MEDS: ASPIRIN 81 MG PO SCH (09:37)
[2023-06-12] MEDS: DAPAGLIFLOZIN PROPANEDIOL 10 MG TABLET PO SCH (09:37)
[2023-06-12] MEDS: METOPROLOL TARTRATE 25 MG TAB PO SCH ×2 (09:37→21:30)
[2023-06-12] MEDS: SPIRONOLACTONE 25 MG TAB PO SCH (09:37)
[2023-06-12] MEDS ORDERED: SODIUM CHLORIDE 0.9% 2,000 ML IV ONE (12:41)
[2023-06-12] MEDS ORDERED: Potassium Replacement Protocol 1 EACH MISC MISCELLANE PRN (12:42)
[2023-06-12] MEDS ORDERED: Magnesium Replacement Protocol 1 EACH MISC MISCELLANE PRN (12:42)
[2023-06-12] MEDS ORDERED: MAGNESIUM SULFATE-D5W PMX 1 GM in DEXTROSE/WATER 1 100ML.BAG IVPB SCH (12:45)
[2023-06-12] MEDS ORDERED: SODIUM CHLORIDE 0.9% 1,000 ML IV SCH (12:45)
--- NOTE | 2023-06-12 12:55 | XR ---
EXAMINATION TYPE: XR chest 1V portable DATE OF EXAM: 06/12/2023 12:50 PM COMPARISON: Chest radiographs from 06/11/2023 TECHNIQUE: XR chest 1V portable Frontal view of the chest. CLINICAL INDICATION:Male, 53 years old with history of dyspnea; FINDINGS: Lungs/Pleura: There is no evidence of pleural effusion, focal consolidation, or pneumothorax. Pulmonary vascularity: Unremarkable. Heart/mediastinum: Cardiomediastinal silhouette is enlarged and stable. Two lead cardiac conduction d evice overlying the left hemithorax with lead tips projecting over the right ventricle and right atri um. Musculoskeletal: No acute osseous pathology. IMPRESSION: No acute cardiopulmonary disease/process.
[2023-06-12 12:57] LABS: ABG Base Excess -4.4 mmol/L; ABG HCO3 20 mmol/L (21-25); ABG PCO2 28 mmHg (35-45); ABG PH 7.46 (7.35-7.45); ABG PO2 112 mmHg (83-108); ABG TCO2 20 mmol/L (19-24); Allen Test Performed? Yes
[2023-06-12] MEDS ORDERED: POTASSIUM BICARBONATE/CIT AC 20 MEQ TABLET.EFF NG-TUBE SCH (13:00)
[2023-06-12] MEDS ORDERED: IPRATROPIUM-ALBUTEROL 3 ML NEB INHALATION PRN (13:00)
--- NOTE | 2023-06-12 13:00 | P.CNPUL ---
History of Present Illness Consult date: 06/12/23 Requesting physician: Bimal Graf Reason for consult: dyspnea Chief complaint: Shortness of breath History of present illness: This is a 53-year-old white male with history of COPD, nonischemic dilated cardiomyopathy, significant smoking history over the years, continues to smoke on the average of one pack per day. Patient was admitted yesterday on 06/11/2023, he was admitted mostly with shortness of breath and what seems to be a ST elevation myocardial infarction. Apparently the patient has been complaining of shortness of breath for a week prior to admission and at one point he had a sudden onset of severe left-sided chest pain starting about an hour and a half before he arrived to the ER. Patient was seen by cardiology and he was felt to have acute myocardial infarction, and atrial fibrillation with frequent runs of nonsustained ventricular tachycardia and a non-ST and T wave changes. Patient underwent cardiac catheterization, and he was found to have an acutely occluded proximal RCA. There was no evidence of occlusion in the LAD and the left circumflex. Patient was found to have left ventricular end-diastolic pressure is elevated. Excess. 10 of the RCA was done and the patient was admitted to the ICU. I'm seeing the patient today mostly because of mostly shortness of breath, no cough no wheezing, no chest pain at present. Patient is on his usual protocol after stent placement, seems to be hemodynamically stable, he does have atrial flutter, and frequent PVCs, being addressed by cardiology. Considering his shortness of breath, I was asked to see him on consultation. Chest x-ray at this point seems to show no evidence of congestive heart failure, he does have cardiomegaly, no evidence of infiltrate. ABG on room air is pending his O2 sat saturation is in the 90s on room air Review of Systems CONSTITUTIONAL: No fever, no malaise, no fatigue. HEENT: No recent visual problems or hearing problems. Denied any sore throat. CARDIOVASCULAR: As noted in HPI PULMONARY: As noted in HPI patient has shortness of breath but no cough no wheezing no fever no chills no hemoptysis. GASTROINTESTINAL: No diarrhea, no nausea, no vomiting, no abdominal pain. NEUROLOGICAL: No headaches, no weakness, no numbness. HEMATOLOGICAL: Denies any bleeding or petechiae. GENITOURINARY: Negative Musculoskeletal: Negative ENDOCRINE: Denies any polyuria or polydipsia. Past Medical History Past Medical History: Atrial Fibrillation, COPD Additional Past Medical History / Comment(s): a fib, History of Any Multi-Drug Resistant Organisms: None Reported Past Surgical History: Unable to Obtain Additional Past Surgical History / Comment(s): AICD placement in 2021 Past Anesthesia/Blood Transfusion Reactions: No Reported Reaction Past Psychological History: Unable to Obtain Smoking Status: Current every day smoker Past Alcohol Use History: Unable to Obtain Past Drug Use History: Unable to Obtain - Past Family History Father History Unknown: Yes Mother History Unknown: Yes Medications and Allergies Home Medications Medication Instructions Recorded Confirmed Type Rivaroxaban [Xarelto] 20 mg PO DAILY 06/11/23 06/11/23 History Sacubitril/Valsartan [Entresto 24 1 tab PO BID 06/11/23 06/11/23 History mg-26 mg Tablet] carvediloL [Coreg] 25 mg PO BID-W/MEALS 06/11/23 06/11/23 History Allergies Allergy/AdvReac Type Severity Reaction Status Date / Time No Known Allergies Allergy Verified 06/11/23 18:09 Physical Exam Vitals: Vital Signs Temp Pulse Pulse Resp BP BP Pulse Ox 06/12/23 12:00 97.7 F 70 0 L 120/77 100 06/12/23 11:30 82 14 109/90 99 06/12/23 11:00 69 27 H 115/79 100 06/12/23 10:30 71 19 123/104 99 06/12/23 10:00 70 24 120/97 99 06/12/23 09:30 70 28 H 107/94 95 06/12/23 09:00 70 23 99/71 98 06/12/23 08:30 97.6 F 69 18 109/86 98 06/12/23 08:00 69 16 110/92 99 06/12/23 07:30 70 22 110/95 98 06/12/23 07:00 70 21 111/93 100 06/12/23 06:30 70 18 113/95 97 06/12/23 06:00 71 18 109/87 100 06/12/23 05:45 70 21 109/87 98 06/12/23 05:30 70 11 L 102/84 97 06/12/23 05:15 70 21 102/84 98 06/12/23 05:00 70 16 103/85 98 06/12/23 04:45 18 115/87 98 06/12/23 04:30 69 13 115/87 97 06/12/23 04:15 76 16 111/89 98 06/12/23 04:00 97.9 F 69 15 118/93 100 06/12/23 03:45 71 109/94 99 06/12/23 03:30 89 117/90 100 06/12/23 03:15 78 18 118/93 97 06/12/23 03:00 70 15 117/92 98 06/12/23 02:45 70 18 118/89 98 06/12/23 02:30 81 18 115/93 85 L 06/12/23 02:15 71 17 113/98 99 06/12/23 02:00 70 14 118/95 97 06/12/23 01:45 76 14 112/91 98 06/12/23 01:30 70 14 107/94 98 06/12/23 01:15 70 16 105/86 96 06/12/23 01:00 75 17 110/94 99 06/12/23 00:45 69 13 115/93 98 06/12/23 00:30 74 17 112/90 98 06/12/23 00:15 70 20 115/99 97 06/12/23 00:00 97.7 F 78 16 108/94 98 06/11/23 23:58 70 18 108/94 98 06/11/23 23:45 69 109/89 97 06/11/23 23:30 70 11 L 110/94 98 06/11/23 23:15 71 15 102/87 98 06/11/23 23:00 70 17 115/90 97 06/11/23 22:54 97.7 F 69 18 113/85 98 06/11/23 22:45 69 14 105/91 98 06/11/23 22:30 70 19 109/92 97 06/11/23 22:15 70 113/85 95 06/11/23 22:00 97.6 F 70 69 18 111/94 113/85 96 06/11/23 21:45 80 15 107/88 95 06/11/23 21:30 70 18 106/95 97 06/11/23 21:15 69 18 80/69 98 06/11/23 21:00 97.6 F 69 70 17 113/85 80/69 98 06/11/23 20:45 101 H 17 115/88 98 06/11/23 20:30 97.8 F 94 95 15 122/80 115/88 98 06/11/23 20:15 105 H 13 87/76 98 06/11/23 20:00 97.8 F 105 H 96 15 119/95 87/76 99 06/11/23 19:45 96.8 F L 96 104 H 25 H 112/83 119/95 98 06/11/23 19:30 96.7 F L 92 100 7 L 106/73 112/83 99 06/11/23 19:16 94 21 06/11/23 19:15 96.1 F L 102 H 18 106/73 97 06/11/23 17:45 134 H 22 102/91 94 L 06/11/23 17:33 137 H 06/11/23 17:30 96.9 F L 150 H 20 95/65 Intake and Output 06/11/23 06/12/23 06/12/23 22:59 06:59 14:59 Intake Total 1109 2205.491 934.447 Output Total 0 175 1200 Balance 1109 2030.491 -265.553 Intake: IV 1109 2060 310 Amiodarone 360 mg In 600 400 Dextrose 5% in Water 200 ml @ 1 MG/MIN 33.333 mls/ hr IV .Q6H [facility] Rx#: [id number] Amiodarone 450 mg In 1500 250 Dextrose 5% in Water 250 ml @ 0.5 MG/MIN 16.667 mls/hr IV .Q15H [facility] Rx#: [id number] Invasive Line 1 20 Invasive Line 3 20 KVO 60 160 20 Intake, IV Titration 145.491 144.447 Amount Amiodarone 450 mg In 144.447 Dextrose 5% in Water 250 ml @ 0.5 MG/MIN 16.667 mls/hr IV .Q15H [facility] Rx#: [id number] Norepinephrine 4 mg In 145.491 Sodium Chloride 0.9% 250 ml @ 0.03 MCG/KG/MIN 11. 406 mls/hr IV .[id number] [facility] Rx#:[id number] Oral 480 Output: Urine 0 175 1200 Other: Voiding Method Urinal Weight 99.79 kg 97.4 kg Physical Exam: Revealed a 53-year-old white male in no distress on room air Head: Atraumatic, normocephalic. HEENT:[Neck is supple.] [No neck masses.] [No thyromegaly.] [No JVD.] Chest: [Diminished breath sound bilaterally no crackles or rhonchi or wheezes Cardiac Exam: [Irregular irregular rhythm noted. Normal S1 and S2, no S3 gallop, no murmur.] Abdomen: [Soft, nontender, no megaly, no rebound, no guarding, normal bowel sounds.] Extremities: [No clubbing, no edema, no cyanosis.] Neurological Exam: [No focal neurologic deficit.] Alert and oriented 3. Psychiatric: Normal mood affect and normal. Skin: No rashes. Results - Laboratory Findings CBC and BMP: 06/12/23 04:38 06/12/23 04:38 PT/INR, D-dimer PT 13.3 sec (9.0-12.0) H 06/11/23 17:41 INR 1.3 (<1.2) H 06/11/23 17:41 Abnormal lab findings: Abnormal Labs 06/11/23 06/11/23 06/11/23 17:41 17:41 17:41 WBC 14.5 H MCV 100.3 H Neutrophils # 10.7 H PT 13.3 H INR 1.3 H Chloride Carbon Dioxide Glucose 123 H POC Glucose (mg/dL) Total Bilirubin 1.9 H AST Troponin I Total Protein 8.9 H 06/11/23 06/11/23 06/11/23 19:43 19:43 19:43 WBC 14.1 H MCV 102.4 H Neutrophils # 11.2 H PT INR Chloride 109 H Carbon Dioxide 17 L Glucose 126 H POC Glucose (mg/dL) Total Bilirubin 1.5 H AST 277 H Troponin I 6.650 H* Total Protein 06/11/23 06/11/23 06/12/23 22:47 23:17 04:38 WBC 13.6 H MCV 101.9 H Neutrophils # 10.9 H PT INR Chloride Carbon Dioxide Glucose POC Glucose (mg/dL) 120 H Total Bilirubin AST Troponin I 108.000 H* Total Protein 06/12/23 04:38 WBC MCV Neutrophils # PT INR Chloride Carbon Dioxide 21 L Glucose 125 H POC Glucose (mg/dL) Total Bilirubin AST Troponin I Total Protein - Diagnostic Findings Chest x-ray: image reviewed (No evidence of active disease) Assessment and Plan Assessment: Impression: Shortness of breath most likely secondary to underlying COPD Acute ST elevation myocardial infarction/inferior wall myocardial infarction Status post stenting of RCA Suspect some component of cardiomyopathy contributing to his shortness of breath Atrial fibrillation/flutter, also likely contributing to his shortness of breath, being addressed by cardiology Recommendation: Continue present supportive care measures Continue diuretics/Aldactone and Lasix given already by cardiology Add bronchodilators/DuoNeb and Symbicort. No need to add methylprednisolone at this point. Check ABG on room air, Continue Xarelto We will continue to follow Time with Patient: Greater than 30
[2023-06-12 13:02] LABS: ABG Oxygen Saturation 97.9 % (94-97)
[2023-06-12] MEDS ORDERED: ALPRAZolam 0.5 MG TAB PO PRN (13:20)
--- NOTE | 2023-06-12 15:46 | CA ---
Transthoracic Echo Report Name: Shay Newman Age: 53 Gender: M : 1970 Exam Date: 06/12/2023 10:25 Exam Location: [facility] Ht (in): 75 Wt (lb): 220 Ordering Physician: Bimal Graf MD ([id number]) Attending/Referring Phys: Coat Finisher Kalpana Tian RDCS Procedure CPT: Indications: cm Cardiac Hx: AICD Technical Quality: Good Contrast 1: Total Dose (mL): Contrast 2: Total Dose (mL): MEASUREMENTS (Male / Female) Normal Values 2D ECHO LV Diastolic Diameter PLAX 6.5 cm 4.2 - 5.9 / 3.9 - 5.3 cm LV Systolic Diameter PLAX 6.0 cm IVS Diastolic Thickness 1.2 cm 0.6 - 1.0 / 0.6 - 0.9 cm LVPW Diastolic Thickness 1.0 cm 0.6 - 1.0 / 0.6 - 0.9 cm LV Relative Wall Thickness 0.3 RV Internal Dim ED PLAX 4.0 cm LA Systolic Diameter LX 5.5 cm 3.0 - 4.0 / 2.7 - 3.8 cm LV Diastolic Volume MOD 4C 122.4 cm??? LV Systolic Volume MOD 4C 85.5 cm??? LV Ejection Fraction MOD 4C 30.2 % LV Cardiac Index MOD 4C 1102.1 cm???/min???m??? LV Diastolic Length 4C 8.1 cm LV Systolic Length 4C 7.4 cm LV Diastolic Volume MOD 2C 175.8 cm??? LV Systolic Volume MOD 2C 130.5 cm??? LV Ejection Fraction MOD 2C 25.8 % LV Cardiac Index MOD 2C 1353.3 cm???/min???m??? LV Diastolic Length 2C 8.6 cm LV Systolic Length 2C 8.2 cm LA Volume 110.5 cm??? 18 - 58 / 22 - 52 cm??? M-MODE Aortic Root Diameter MM 3.4 cm MV E Point Septal Separation 1.8 cm AV Cusp Separation MM 2.5 cm DOPPLER AV Peak Velocity 82.5 cm/s AV Peak Gradient 2.7 mmHg MV Area PHT 4.6 cm??? MV Deceleration Time 179.0 ms TR Peak Velocity 233.1 cm/s TR Peak Gradient 21.7 mmHg Right Ventricular Systolic Press 36.7 mmHg FINDINGS Left Ventricle Left ventricular ejection fraction is estimated at 20-25 %. Mildly increased septal wall thickness. Moderately increased left ventricular diastolic diameter. Severely reduced global left ventricular systolic function with global hypokinesis, worse in the inferior wall. Right Ventricle Moderate right ventricular dilatation. Mild pulmonary hypertension. Reduced right ventricular global systolic function. A wire was noted in the right ventricle Right Atrium Normal right atrial size. Left Atrium Severely increased left atrial diameter. Severely increased left atrial volume. Moderately increased left atrial area. Mitral Valve Mitral valve thickened. Mild to moderate mitral regurgitation. Aortic Valve Trileaflet aortic valve. Trace aortic regurgitation. Tricuspid Valve Structurally normal tricuspid valve. Mild to moderate tricuspid regurgitation Pulmonic Valve Structurally normal pulmonic valve. No pulmonic regurgitation. Pericardium No pericardial effusion. Aorta Normal size aortic root and proximal ascending aorta. CONCLUSIONS 1. Severely impaired systolic function was global hypokinesis worse in the inferior wall 2. Mild to moderate mitral and tricuspid regurgitation with mild pulmonary hypertension 3. Dilated right ventricle Previewed by: Dr. Bimal Graf MD (Electronically Signed) Final Date: 12 June 2023 15:45
[2023-06-12] MEDS: IPRATROPIUM-ALBUTEROL 3 ML NEB INHALATION SCH ×2 (16:00→21:54)
[2023-06-12] MEDS ORDERED: ALPRAZolam 1 MG TAB PO PRN (16:05)
[2023-06-12] MEDS: RIVAROXABAN 20 MG TAB PO SCH (17:51)
[2023-06-12] MEDS: ATORVASTATIN 80 MG TAB PO SCH (21:30)
[2023-06-12] MEDS: SYMBICORT 160-4.5 MCG INHALER INHALATION SCH (21:54)
[2023-06-13 05:27] LABS: Basophils # (A) 0.1 k/uL (0-0.2); Basophils % (A) 0 %; Eosinophils # (A) 0.1 k/uL (0-0.7); Eosinophils % (A) 1 %; HCT 43.9 % (39.0-53.0); HGB 14.4 gm/dL (13.0-17.5); Lymphocytes # (A) 2.4 k/uL (1.0-4.8); Lymphocytes % (A) 18 %; MCH 32.9 pg (25.0-35.0); MCHC 32.9 g/dL (31.0-37.0); Macrocytosis Slight; Mean Platelet Volume 8.6; Monocytes # (A) 1.1 k/uL (0-1.0); Monocytes % (A) 8 %; Neutrophils # (A) 9.7 k/uL (1.3-7.7); Neutrophils % (A) 71 %; Platelet Count 162 k/uL (150-450); RBC 4.38 m/uL (4.30-5.90); RDW 13.8 % (11.5-15.5); WBC 13.7 k/uL (3.8-10.6)
[2023-06-13 05:36] LABS: African American GFR (CKD) >90 (>60 ml/min/1.73 sqM); Anion Gap 6 mmol/L; Blood Urea Nitrogen 19 mg/dL (9-20); Carbon Dioxide 23 mmol/L (22-30); Chloride 105 mmol/L (98-107); Glucose 85 mg/dL (74-99); Magnesium 1.9 mg/dL (1.6-2.3); Non-African American GFR(CKD) 85 (>60 ml/min/1.73 sqM); Potassium 4.2 mmol/L (3.5-5.1); Sodium 134 mmol/L (137-145)
[2023-06-13] MEDS: IPRATROPIUM-ALBUTEROL 3 ML NEB INHALATION SCH ×4 (09:23→21:25)
[2023-06-13] MEDS: SYMBICORT 160-4.5 MCG INHALER INHALATION SCH ×2 (09:24→21:25)
[2023-06-13] MEDS: ASPIRIN 81 MG PO SCH (09:43)
[2023-06-13] MEDS: METOPROLOL TARTRATE 25 MG TAB PO SCH (09:43)
[2023-06-13] MEDS: SPIRONOLACTONE 25 MG TAB PO SCH (09:43)
[2023-06-13] MEDS: DAPAGLIFLOZIN PROPANEDIOL 10 MG TABLET PO SCH (09:44)
[2023-06-13] MEDS: PRASUGREL 10 MG TAB PO SCH (09:44)
--- NOTE | 2023-06-13 12:04 | P.PN ---
Subjective Progress Note Date: 06/13/23 This is a 53-year-old white male with history of COPD, nonischemic dilated cardiomyopathy, significant smoking history over the years, continues to smoke on the average of one pack per day. Patient was admitted yesterday on 06/11/2023, he was admitted mostly with shortness of breath and what seems to be a ST elevation myocardial infarction. Apparently the patient has been complaining of shortness of breath for a week prior to admission and at one point he had a sudden onset of severe left-sided chest pain starting about an hour and a half before he arrived to the ER. Patient was seen by cardiology and he was felt to have acute myocardial infarction, and atrial fibrillation with frequent runs of nonsustained ventricular tachycardia and a non-ST and T wave changes. Patient underwent cardiac catheterization, and he was found to have an acutely occluded proximal RCA. There was no evidence of occlusion in the LAD and the left circumflex. Patient was found to have left ventricular end-diastolic pressure is elevated. Excess. 10 of the RCA was done and the patient was admitted to the ICU. I'm seeing the patient today mostly because of mostly shortness of breath, no cough no wheezing, no chest pain at present. Patient is on his usual protocol after stent placement, seems to be hemodynamically stable, he does have atrial flutter, and frequent PVCs, being addressed by cardiology. Considering his shortness of breath, I was asked to see him on consultation. Chest x-ray at this point seems to show no evidence of congestive heart failure, he does have cardiomegaly, no evidence of infiltrate. ABG on room air is pending his O2 sat saturation is in the 90s on room air. The patient is seen today 06/13/2023 in follow-up in the intensive care unit. He is currently sitting up in bed. Awake and alert in no acute distress. His norepinephrine has been off her 24 hours. He currently maintaining good O2 saturations in the 90s on room air. He was initiated on Symbicort, DuoNeb inhal ations and Xanax and he is less short of breath today. Chest x-ray continues to show no acute cardiopulmonary process. White count 13.7. Hemoglobin 14.4. Sodium 134. Potassium 4.2. Bicarb 23. BUN 19. Creatinine 1.0. He is anticoagulated with Xarelto. Objective - Vital Signs Vital signs: Vital Signs Temp 97.7 F 06/13/23 08:00 Pulse 98 06/13/23 11:00 Resp 22 06/13/23 11:00 BP 110/75 06/13/23 11:00 Pulse Ox 97 06/13/23 11:00 FiO2 Intake & Output 06/12/23 06/13/23 06/13/23 18:59 06:59 18:59 Intake Total 1194.447 210 260 Output Total 1950 0 1050 Balance -755.553 210 -790 Weight 92.7 kg Intake: IV 330 60 20 Amiodarone 450 mg In 250 Dextrose 5% in Water 250 ml @ 0.5 MG/MIN 16.667 mls/hr IV .Q15H PRAVEEN Rx#: [id number] Invasive Line 1 30 30 10 Invasive Line 3 30 30 10 KVO 20 Intake, IV Titration 144.447 Amount Amiodarone 450 mg In 144.447 Dextrose 5% in Water 250 ml @ 0.5 MG/MIN 16.667 mls/hr IV .Q15H PRAVEEN Rx#: [id number] Oral 720 150 240 Output: Urine 1950 0 1050 Other: Voiding Method Urinal Urinal # Voids 0 1 - Exam GENERAL EXAM: Alert, pleasant 53-year-old male patient, on room air, comfortable in no apparent distress. HEAD: Normocephalic. EYES: Normal reaction of pupils, equal size. NOSE: Clear with pink turbinates. THROAT: No erythema or exudates. NECK: No masses, no JVD. CHEST: No chest wall deformity. LUNGS: Equal air entry with no crackles, wheeze, rhonchi or dullness. CVS: S1 and S2 normal with no audible murmur, irregular rhythm. ABDOMEN: No hepatosplenomegaly, normal bowel sounds, no guarding or rigidity. SPINE: No scoliosis or deformity SKIN: No rashes CENTRAL NERVOUS SYSTEM: No focal deficits, tone is normal in all 4 extremities. EXTREMITIES: There is no peripheral edema. No clubbing, no cyanosis. Peripheral pulses are intact. - Labs CBC & Chem 7: 06/13/23 04:56 06/13/23 04:56 Labs: Abnormal Lab Results - Last 24 Hours (Table) 06/12/23 06/13/23 06/13/23 Range/Units 12:53 04:56 04:56 WBC 13.7 H (3.8-10.6) k/uL Neutrophils # 9.7 H (1.3-7.7) k/uL Monocytes # 1.1 H (0-1.0) k/uL ABG pH 7.46 H (7.35-7.45) ABG pCO2 28 L (35-45) mmHg ABG pO2 112 H (83-108) mmHg ABG HCO3 20 L (21-25) mmol/L ABG O2 Saturation 97.9 H (94-97) % Sodium 134 L (137-145) mmol/L Assessment and Plan Assessment: Shortness of breath most likely secondary to underlying COPD Acute ST elevation myocardial infarction/inferior wall myocardial infarction Status post stenting of RCA Ischemic cardiomyopathy with an ejection fraction 20-25%, AICD in place Atrial fibrillation/flutter, also likely contributing to his shortness of breath Chronic and ongoing tobacco dependence Plan: The patient was seen and evaluated Chest x-ray, labs and medications reviewed Continue Symbicort, DuoNeb inhalations Educated regarding the importance of complete smoking cessation We will continue to follow I have personally seen and examined the patient, performed the documentation and the assessment and plan as written. Number of minutes spent on the visit: 10.
--- NOTE | 2023-06-13 15:36 | P.PN ---
Subjective PROGRESS NOTE The patient is a 53-year-old male with known history of dilated nonischemic cardiomyopathy, chronic persistent atrial fibrillation, ICD implantation and chronic tobacco use who presented with an acute inferior wall myocardial infarction and episodes of nonsustained VT. He underwent cardiac catheterization and stenting of the RCA. He has no further chest discomfort. He has no episodes of ventricle tachycardia with occasional PVCs. He continues to be in atrial fibrillation with controlled ventricular response. He denies any nausea or vomiting. He has some abdominal discomfort. He has no dizziness. His breathing is stable. He is off norepinephrine and continues to be on IV amiodarone 06/13 Patient seen and examined. Patient denies any further chest pain or pressure. Troponin peaked over 100. Echo shows severe LV dysfunction some of which has been chronic. He remains in atrial fibrillation and admits has been shocked and number of times with patient going right back in A. fib. Admits to continued mild dyspnea. Has been having frequent ectopy. His home carvedilol was changed to metoprolol and currently tolerating well. Blood pressure remains somewhat borderline however MAP increased. PHYSICAL EXAMINATION: Vitals reviewed LUNGS: Clear to auscultation HEART: Irregular rate and rhythm, S1, S2. No S3. Systolic ejection murmur ABDOMEN: Soft, nontender, no organomegaly EXTREMETIES: No edema, right groin no hematoma IMPRESSION: 1. Status post acute inferior wall myocardial infarction stenting of the RCA 2. History of dilated nonischemic cardiomyopathy could be alcoholic 3. Status post ICD implantation 4. Chronic persistent atrial fibrillation 5. S/post ICD implantation PLAN: Echo shows continued severe cardiomyopathy. Blood pressure is borderline however overall the MAP is adequate and we will attempt to uptitrate BBlocker. If patient remains stable, likely DC home tomorrow. OK to be downgraded from ICU. Objective - Vital Signs Vital signs: Vital Signs Temp 97.9 F 06/13/23 12:00 Pulse 96 06/13/23 14:00 Resp 26 H 06/13/23 14:00 BP 106/78 06/13/23 14:00 Pulse Ox 100 06/13/23 14:00 FiO2 Intake & Output 06/12/23 06/13/23 06/13/23 18:59 06:59 18:59 Intake Total 1194.447 210 520 Output Total 1950 0 1850 Balance -755.553 210 -1330 Weight 92.7 kg Intake: IV 330 60 40 Amiodarone 450 mg In 250 Dextrose 5% in Water 250 ml @ 0.5 MG/MIN 16.667 mls/hr IV .Q15H PRAVEEN Rx#: [id number] Invasive Line 1 30 30 20 Invasive Line 3 30 30 20 KVO 20 Intake, IV Titration 144.447 Amount Amiodarone 450 mg In 144.447 Dextrose 5% in Water 250 ml @ 0.5 MG/MIN 16.667 mls/hr IV .Q15H PRAVEEN Rx#: [id number] Oral 720 150 480 Output: Urine 1950 0 1850 Other: Voiding Method Urinal Urinal # Voids 0 1 - Labs CBC & Chem 7: 06/13/23 04:56 06/13/23 04:56 Labs: Abnormal Lab Results - Last 24 Hours (Table) 06/13/23 06/13/23 Range/Units 04:56 04:56 WBC 13.7 H (3.8-10.6) k/uL Neutrophils # 9.7 H (1.3-7.7) k/uL Monocytes # 1.1 H (0-1.0) k/uL Sodium 134 L (137-145) mmol/L
[2023-06-13 15:59] VITALS: BMI 25.5
[2023-06-13] MEDS: NICOTINE 21MG/24HR PATCH TRANSDERM SCH (17:54)
[2023-06-13] MEDS: RIVAROXABAN 20 MG TAB PO SCH (17:54)
--- NOTE | 2023-06-13 17:59 | P.PN ---
Progress Note - Text Progress Note Date: 06/13/23 Chief Complaint: Chest pain 53-year-old male, history of atrial fibrillation presents emergency Department as a STEMI activation. Patient is a history of atrial fibrillation, COPD has been having some dyspnea throughout the week but had sudden onset severe left- sided chest pain starting approximately an hour and a half ago. Was mowing the lawn when it started. His found him on the ground at home and they called EMS. EKG reveals atrial fibrillation with findings suspicious for STEMI with elevations in 2, 3, aVF with reciprocal depressions in 1 and aVL. STEMI pager was activated prior to hospital arrival. Upon arrival patient was complaining of left sided chest pain. States it was sudden in onset. Describes it as a crushing chest pain. No radiation. Has not expenses pain previously. No history of cardiac stents. We have no prior EKG for comparison in our system. States he has been compliant with medications. Is on blood thinners for A. fib. To become diaphoretic when the chest pain started he states as well as mildly nauseous. Denies any other acute complaints at this time. Patient is planned to be taken to cath, lab. Patient received aspirin 324 mg from EMS; bolused with IV heparin infusion -- Blood work review. CBC of 14.1, hemoglobin of 14.6 and platelet count of 182, sodium 139, potassium 4.2, BUN/creatinine of 19/1.13 and blood glucose of 123, total bilirubin elevated at 1.9, troponin less than 0.012 June 12: Patient seen by [facility] hospitalists. June 13: I assumed care of the patient today. ICU. Patient sitting up in a chair. Breathing better. Did eat food. at the bedside. Has not really ambulated. Patient stopped drinking excessive alcohol about 10 years ago. Increased alcohol intake for close to 25 years several beers a day. Beta patrick being adjusted per cardiology. Discussed with patient and . Increase activity. Ordered liver ultrasound. Active Medications Al Hydroxide/Mg Hydroxide (Mag Hydrox/Al Hydrox/Simeth 30 Ml Cup) 30 ml PO Q4HR PRN PRN Reason: Heartburn Albuterol/Ipratropium (Ipratropium-Albuterol 3 Ml Neb) 3 ml INHALATION RT-QID PRAVEEN Last Admin: 06/13/23 16:30 Dose: 3 ml Albuterol/Ipratropium (Ipratropium-Albuterol 3 Ml Neb) 3 ml INHALATION RT-Q2H PRN PRN Reason: Shortness Of Breath Or Wheezing Alprazolam (Alprazolam 0.5 Mg Tab) 0.5 mg PO TID PRN PRN Reason: Anxiety Last Admin: 06/12/23 14:10 Dose: 0.5 mg Aspirin (Aspirin 81 Mg) 81 mg PO DAILY [facility] Last Admin: 06/13/23 09:43 Dose: 81 mg Atorvastatin Calcium (Atorvastatin 80 Mg Tab) 80 mg PO HS [facility] Last Admin: 06/12/23 21:30 Dose: 80 mg Atropine Sulfate (Atropine Sulfate 0.1 Mg/Ml 10ml Syringe) 0.5 mg IV ONCE PRN PRN Reason: Symptomatic Bradycardia Budesonide/Formoterol Fumarate (Symbicort 160-4.5 Mcg Inhaler) 2 puff INHALATION RT-BID [facility] Last Admin: 06/13/23 09:24 Dose: 2 puff Dapagliflozin (Dapagliflozin Propanediol 10 Mg Tablet) 10 mg PO DAILY [facility] Last Admin: 06/13/23 09:44 Dose: 10 mg Metoprolol Succinate (Metoprolol Succinate (Er) 25 Mg Tab.Er.24h) 25 mg PO BID [facility] Miscellaneous Information (Rx Info: Iv Contrast Was Given 1 Each Misc) 1 each MISCELLANE DAILY PRN PRN Reason: Per Protocol Stop: 06/13/23 19:09 Miscellaneous Information (Potassium Replacement Protocol 1 Each Misc) 1 each MISCELLANE DAILY PRN; Protocol PRN Reason: Per Protocol Naloxone HCl (Naloxone 0.4 Mg/Ml 1 Ml Vial) 0.2 mg IV Q2M PRN PRN Reason: Opioid Reversal Nitroglycerin (Nitroglycerin Sl Tabs 0.4 Mg Tab) 0.4 mg SUBLINGUAL Q5M PRN PRN Reason: Chest Pain Prasugrel (Prasugrel 10 Mg Tab) 10 mg PO DAILY [facility]; Protocol Last Admin: 06/13/23 09:44 Dose: 10 mg Rivaroxaban (Rivaroxaban 20 Mg Tab) 20 mg PO W/SUPPER [facility]; Protocol Last Admin: 06/12/23 17:51 Dose: 20 mg Sacubitril/Valsartan (Sacubitril/Valsartan 24 Mg-26 Mg Tablet) 1 each PO BID [facility] Spironolactone (Spironolactone 25 Mg Tab) 25 mg PO DAILY [facility] Last Admin: 06/13/23 09:43 Dose: 25 mg Zolpidem Tartrate (Zolpidem 5 Mg Tab) 5 mg PO HS PRN PRN Reason: Insomnia Last Admin: 06/12/23 21:30 Dose: 5 mg INVESTIGATIONS, reviewed in the clinical context: June 13: White count 16.1 hemoglobin 13.4 platelets 528 sodium 134 potassium 3.8 creatinine 1.0 troponin bilirubin 1.4 AST 137 ALT 180 2-D echocardiogram: EF 20-25%. Reduced global LV function. Moderate right ventricular dilatation. Mild to moderate mitral regurgitation. [id number] tricuspid regurgitation. LDL 94.3 Troponin I: Less than 0.012, 6.6, 108 Assessment and plan: -Acute STEMI - Patient was bolused with IV heparin and taken to [employer]; cardiac catheterization reveals acutely occluded proximal RCA, no obstructive disease in LAD and left circumflex, elevated LVEDP; patient has undergone successful stenting of proximal RCA with reduction of stenosis from 100% and less than 5% with intravascular ultrasound imaging - Patient to continue aspirin and Effient for one week after which he is recommended to stop aspirin and continue Effient and anticoagulation for one year along with aggressive risk factor modification and smoking cessation - Patient has been placed on Lipitor 80 mg by mouth daily at bedtime; farxiga 10 mg daily, metoprolol 25 mg twice a day -Chronic, Persistent Atrial fibrillation; metoprolol 25 mg twice a day; anticoagulation with Xarelto -ischemic dilated cardiomyopathy; status post ICD implantation Entresto. Aldactone. -Chronic tobacco abuse Nicotine patch 21 CODE STATUS; full code Discussed with the patient and the . Questions answered. Increase activity.
[2023-06-13] MEDS: SACUBITRIL/VALSARTAN 24 MG-26 MG TABLET PO SCH (20:46)
[2023-06-13] MEDS: ZOLPIDEM 5 MG TAB PO PRN (20:46)
[2023-06-13] MEDS: ATORVASTATIN 80 MG TAB PO SCH (20:46)
[2023-06-13] MEDS ORDERED: METOPROLOL SUCCINATE (ER) 25 MG TAB.ER.24H PO SCH (21:00)
[2023-06-14 06:22] LABS: ALT 47 U/L (4-49); AST 91 U/L (17-59); African American GFR (CKD) >90 (>60 ml/min/1.73 sqM); Albumin 3.3 g/dL (3.5-5.0); Alkaline Phosphatase 67 U/L (38-126); Anion Gap 4 mmol/L; Blood Urea Nitrogen 18 mg/dL (9-20); Calcium 8.8 mg/dL (8.4-10.2); Carbon Dioxide 25 mmol/L (22-30); Chloride 105 mmol/L (98-107); Glucose 99 mg/dL (74-99); Non-African American GFR(CKD) 81 (>60 ml/min/1.73 sqM); Potassium 4.4 mmol/L (3.5-5.1); Sodium 134 mmol/L (137-145); Total Bilirubin 0.9 mg/dL (0.2-1.3); Total Protein 6.5 g/dL (6.3-8.2)
[2023-06-14] MEDS: IPRATROPIUM-ALBUTEROL 3 ML NEB INHALATION SCH ×2 (07:51→11:23)
[2023-06-14] MEDS: SYMBICORT 160-4.5 MCG INHALER INHALATION SCH (07:51)
[2023-06-14] MEDS ORDERED: METOPROLOL SUCCINATE (ER) 25 MG TAB.ER.24H PO SCH (08:15)
--- NOTE | 2023-06-14 08:18 | P.PN ---
Subjective PROGRESS NOTE The patient is a 53-year-old male with known history of dilated nonischemic cardiomyopathy, chronic persistent atrial fibrillation, ICD implantation and chronic tobacco use who presented with an acute inferior wall myocardial infarction and episodes of nonsustained VT. He underwent cardiac catheterization and stenting of the RCA. He has no further chest discomfort. He has no episodes of ventricle tachycardia with occasional PVCs. He continues to be in atrial fibrillation with controlled ventricular response. He denies any nausea or vomiting. He has some abdominal discomfort. He has no dizziness. His breathing is stable. He is off norepinephrine and continues to be on IV amiodarone 06/13 Patient seen and examined. Patient denies any further chest pain or pressure. Troponin peaked over 100. Echo shows severe LV dysfunction some of which has been chronic. He remains in atrial fibrillation and admits has been shocked and number of times with patient going right back in A. fib. Admits to continued mild dyspnea. Has been having frequent ectopy. His home carvedilol was changed to metoprolol and currently tolerating well. Blood pressure remains somewhat borderline however MAP increased. 06/14 Patient seen and examined. Continues to have significant ectopy on telemetry however no sustained episodes. Metoprolol was increased to Toprol 25 twice a day yesterday. Heart rates still borderline 90s and occasionally in the 100s. Denies any chest pain or pressure. Denies any shortness breath. PHYSICAL EXAMINATION: Vitals reviewed LUNGS: Clear to auscultation HEART: Irregular rate and rhythm, S1, S2. No S3. Systolic ejection murmur ABDOMEN: Soft, nontender, no organomegaly EXTREMETIES: No edema, right groin no hematoma IMPRESSION: 1. Status post acute inferior wall myocardial infarction stenting of the RCA 2. History of dilated nonischemic cardiomyopathy could be alcoholic 3. Status post ICD implantation 4. Chronic persistent atrial fibrillation 5. S/post ICD implantation PLAN: We will again increase the Toprol from 25-37.5 twice a day. Heart rates however. Controlled and no major arrhythmias. Patient appears stable for discharge home with outpatient follow-up in 1 week. Objective - Vital Signs Vital signs: Vital Signs Temp 97.6 F 06/14/23 04:00 Pulse 110 H 06/14/23 08:03 Resp 14 06/14/23 04:00 BP 113/77 06/14/23 04:00 Pulse Ox 97 06/14/23 04:00 FiO2 Intake & Output 06/13/23 06/14/23 06/14/23 18:59 06:59 18:59 Intake Total 760 40 Output Total 1850 300 0 Balance -1090 -260 0 Weight 92.7 kg 94.3 kg Intake: IV 40 40 Invasive Line 1 20 20 Invasive Line 3 20 20 Oral 720 Output: Urine 1850 300 0 Other: Voiding Method Urinal # Voids 1 0 - Labs CBC & Chem 7: 06/13/23 04:56 06/14/23 05:41 Labs: Abnormal Lab Results - Last 24 Hours (Table) 06/14/23 Range/Units 05:41 Sodium 134 L (137-145) mmol/L AST 91 H (17-59) U/L Albumin 3.3 L (3.5-5.0) g/dL
[2023-06-14] MEDS: SPIRONOLACTONE 25 MG TAB PO SCH (09:44)
[2023-06-14] MEDS: ASPIRIN 81 MG PO SCH (09:44)
[2023-06-14] MEDS: SACUBITRIL/VALSARTAN 24 MG-26 MG TABLET PO SCH (09:44)
[2023-06-14] MEDS: PRASUGREL 10 MG TAB PO SCH (09:45)
[2023-06-14] MEDS: DAPAGLIFLOZIN PROPANEDIOL 10 MG TABLET PO SCH (09:45)
[2023-06-14] MEDS: NICOTINE 21MG/24HR PATCH TRANSDERM SCH (09:45)
[2023-06-14 09:52] VITALS: TEMP 98.2
--- NOTE | 2023-06-14 10:52 | P.PN ---
Subjective Progress Note Date: 06/14/23 This is a 53-year-old white male with history of COPD, nonischemic dilated cardiomyopathy, significant smoking history over the years, continues to smoke on the average of one pack per day. Patient was admitted yesterday on 06/11/2023, he was admitted mostly with shortness of breath and what seems to be a ST elevation myocardial infarction. Apparently the patient has been complaining of shortness of breath for a week prior to admission and at one point he had a sudden onset of severe left-sided chest pain starting about an hour and a half before he arrived to the ER. Patient was seen by cardiology and he was felt to have acute myocardial infarction, and atrial fibrillation with frequent runs of nonsustained ventricular tachycardia and a non-ST and T wave changes. Patient underwent cardiac catheterization, and he was found to have an acutely occluded proximal RCA. There was no evidence of occlusion in the LAD and the left circumflex. Patient was found to have left ventricular end-diastolic pressure is elevated. Excess. 10 of the RCA was done and the patient was admitted to the ICU. I'm seeing the patient today mostly because of mostly shortness of breath, no cough no wheezing, no chest pain at present. Patient is on his usual protocol after stent placement, seems to be hemodynamically stable, he does have atrial flutter, and frequent PVCs, being addressed by cardiology. Considering his shortness of breath, I was asked to see him on consultation. Chest x-ray at this point seems to show no evidence of congestive heart failure, he does have cardiomegaly, no evidence of infiltrate. ABG on room air is pending his O2 sat saturation is in the 90s on room air. The patient is seen today 06/13/2023 in follow-up in the intensive care unit. He is currently sitting up in bed. Awake and alert in no acute distress. His norepinephrine has been off her 24 hours. He currently maintaining good O2 saturations in the 90s on room air. He was initiated on Symbicort, DuoNeb inhal ations and Xanax and he is less short of breath today. Chest x-ray continues to show no acute cardiopulmonary process. White count 13.7. Hemoglobin 14.4. Sodium 134. Potassium 4.2. Bicarb 23. BUN 19. Creatinine 1.0. He is anticoagulated with Xarelto. The patient is seen today 06/14/2023 in follow-up in the intensive care unit. He is sitting up in bed. Awake and alert in no acute distress. No chest discomfort. No palpitations or dizziness. He is currently on room air. No IV fluids. His metoprolol was increased to 37.5 mg by mouth twice a day. Remains on Symbicort, DuoNeb inhalations. NicoDerm patch in place. Anticoagulated with Xarelto. Sodium 134. Potassium 4.4. Bicarb 25. BUN 18. Creatinine 1.08. Glucose 99. Objective - Vital Signs Vital signs: Vital Signs Temp 98.2 F 06/14/23 08:00 Pulse 110 H 06/14/23 08:03 Resp 18 06/14/23 08:00 BP 104/73 06/14/23 08:00 Pulse Ox 98 06/14/23 08:00 FiO2 Intake & Output 06/13/23 06/14/23 06/14/23 18:59 06:59 18:59 Intake Total 760 40 Output Total 1850 300 0 Balance -1090 -260 0 Weight 92.7 kg 94.3 kg Intake: IV 40 40 Invasive Line 1 20 20 Invasive Line 3 20 20 Oral 720 Output: Urine 1850 300 0 Other: Voiding Method Urinal Urinal # Voids 1 0 - Exam GENERAL EXAM: Alert, 53-year-old male patient, sitting up in bed, on room air, comfortable in no apparent distress. HEAD: Normocephalic. EYES: Normal reaction of pupils, equal size. NOSE: Clear with pink turbinates. THROAT: No erythema or exudates. NECK: No masses, no JVD. CHEST: No chest wall deformity. LUNGS: Equal air entry with no crackles, wheeze, rhonchi or dullness. CVS: S1 and S2 normal with no audible murmur, irregular rhythm. ABDOMEN: No hepatosplenomegaly, normal bowel sounds, no guarding or rigidity. SPINE: No scoliosis or deformity SKIN: No rashes CENTRAL NERVOUS SYSTEM: No focal deficits, tone is normal in all 4 extremities. EXTREMITIES: There is no peripheral edema. No clubbing, no cyanosis. Peripheral pulses are intact. - Labs CBC & Chem 7: 06/13/23 04:56 06/14/23 05:41 Labs: Abnormal Lab Results - Last 24 Hours (Table) 06/14/23 Range/Units 05:41 Sodium 134 L (137-145) mmol/L AST 91 H (17-59) U/L Albumin 3.3 L (3.5-5.0) g/dL Assessment and Plan Assessment: Shortness of breath most likely secondary to underlying COPD Acute ST elevation myocardial infarction/inferior wall myocardial infarction. S tatus post stenting of RCA Ischemic cardiomyopathy with an ejection fraction 20-25%, AICD in place Atrial fibrillation/flutter, also likely contributing to his shortness of breath Chronic and ongoing tobacco dependence Plan: The patient was seen and evaluated Labs and medications reviewed Stable and on room air Continue Symbicort, DuoNeb inhalations Again educated regarding the importance of complete smoking cessation NicoDerm patch in place Home once cleared by cardiology I have personally seen and examined the patient, performed the documentation and the assessment and plan as written. Number of minutes spent on the visit: 10.
[2023-06-14 13:00] VITALS: BP 104/76; PULSE 105; RESP 20
--- NOTE | 2023-06-14 20:05 | P.DS ---
Providers Date of admission: 06/11/23 18:09 Expected date of discharge: 06/14/23 Attending physician: Chinedu Mora Consults: 06/11/23 17:46 Consult Physician Stat Consulting Provider: Bimal Graf Consult Reason/Comments: STEMI Do you want consulting provider notified?: Already Contacted 06/11/23 19:09 Consult Physician Routine Consulting Provider: [facility] Consult Reason/Comments: Post Interventional Patient Do you want consulting provider notified?: Already Contacted 06/12/23 12:36 Consult Physician Routine Consulting Provider: Abdiel Asher Consult Reason/Comments: dyspnea Do you want consulting provider notified?: Already Contacted Primary care physician: Yaima Soto [facility] Course: Chief Complaint: Chest pain 53-year-old male, history of atrial fibrillation presents emergency Department as a STEMI activation. Patient is a history of atrial fibrillation, COPD has been having some dyspnea throughout the week but had sudden onset severe left- sided chest pain starting approximately an hour and a half ago. Was mowing the lawn when it started. His found him on the ground at home and they called EMS. EKG reveals atrial fibrillation with findings suspicious for STEMI with elevations in 2, 3, aVF with reciprocal depressions in 1 and aVL. STEMI pager was activated prior to hospital arrival. Upon arrival patient was complaining of left sided chest pain. States it was sudden in onset. Describes it as a crushing chest pain. No radiation. Has not expenses pain previously. No history of cardiac stents. We have no prior EKG for comparison in our system. States he has been compliant with medications. Is on blood thinners for A. fib. To become diaphoretic when the chest pain started he states as well as mildly nauseous. Denies any other acute complaints at this time. Patient is planned to be taken to cath, lab. Patient received aspirin 324 mg from EMS; bolused with IV heparin infusion -- Blood work review. CBC of 14.1, hemoglobin of 14.6 and platelet count of 182, sodium 139, potassium 4.2, BUN/creatinine of 19/1.13 and blood glucose of 123, total bilirubin elevated at 1.9, troponin less than 0.012 June 12: Patient seen by [facility] hospitalists. June 13: I assumed care of the patient today. ICU. Patient sitting up in a chair. Breathing better. Did eat food. at the bedside. Has not really ambulated. Patient stopped drinking excessive alcohol about 10 years ago. Increased alcohol intake for close to 25 years several beers a day. Beta patrick being adjusted per cardiology. Discussed with patient and . Increase activity. Ordered liver ultrasound. June 14: Patient doing well. Ambulating. No chest pain. Counseled about smoking. Cataño answered. Cleared by currently for discharge. He'll follow-up with PCP and cardiology. On exam: 98.2, 98, 20, 104/76, 97% room air Sitting up in a chair, comfortable Cardiovascular: First sickle cell normal, no edema Respiratory effort normal, decreased breath sounds INVESTIGATIONS, reviewed in the clinical context: June 13: White count 16.1 hemoglobin 13.4 platelets 528 sodium 134 potassium 3.8 creatinine 1.0 troponin bilirubin 1.4 AST 137 ALT 180 2-D echocardiogram: EF 20-25%. Reduced global LV function. Moderate right ventricular dilatation. Mild to moderate mitral regurgitation. [id number] tricuspid regurgitation. LDL 94.3 Troponin I: Less than 0.012, 6.6, 108 Assessment and plan: -Acute STEMI - Patient was bolused with IV heparin and taken to [facility]; cardiac catheterization reveals acutely occluded proximal RCA, no obstructive disease in LAD and left circumflex, elevated LVEDP; patient has undergone successful st enting of proximal RCA with reduction of stenosis from 100% and less than 5% with intravascular ultrasound imaging - Patient to continue aspirin and Effient for one week after which he is recommended to stop aspirin and continue Effient and anticoagulation for one year along with aggressive risk factor modification and smoking cessation - Patient has been placed on Lipitor 80 mg by mouth daily at bedtime; farxiga 10 mg daily, metoprolol 25 mg twice a day -Chronic, Persistent Atrial fibrillation; metoprolol 25 mg twice a day; anticoagulation with Xarelto -ischemic dilated cardiomyopathy; status post ICD implantation Entresto. Aldactone. -Chronic tobacco abuse Nicotine patch 21 CODE STATUS; full code Disposition: Home Plan - Discharge Summary Discharge Rx Participant: Yes New Discharge Prescriptions: New Albuterol Sulfate [Albuterol Sulfate Hfa] 1 puff PO Q4-6H #8.5 gm Spironolactone [Aldactone] 25 mg PO DAILY #30 tab Aspirin 81 mg PO DAILY tab Prasugrel [Effient] 10 mg PO DAILY #30 tab Dapagliflozin Propanediol [Farxiga] 10 mg PO DAILY #30 tab Atorvastatin [Lipitor] 80 mg PO HS #30 tab Nitroglycerin Sl Tabs [Nitrostat] 0.4 mg SUBLINGUAL Q5M PRN #30 tab PRN Reason: Chest Pain Budesonide-Formot 160-4.5 Mcg [Symbicort 160-4.5 Mcg Inhaler] 2 puff INHALATION RT-BID #1 each Nicotine 21Mg/24Hr Patch [Habitrol] 1 patch TRANSDERM DAILY #14 patch Metoprolol Succinate (ER) [Toprol XL] 37.5 mg PO BID #60 tab Continue Sacubitril/Valsartan [Entresto 24 mg-26 mg Tablet] 1 tab PO BID Changed Rivaroxaban [Xarelto] 20 mg PO W/SUPPER #0 Discontinued carvediloL [Coreg] 25 mg PO BID-W/MEALS Discharge Medication List Sacubitril/Valsartan [Entresto 24 mg-26 mg Tablet] 1 tab PO BID 06/11/23 [History] Albuterol Sulfate [Albuterol Sulfate Hfa] 1 puff PO Q4-6H #8.5 gm 06/14/23 [Rx] Aspirin 81 mg PO DAILY tab 06/14/23 [Rx] Atorvastatin [Lipitor] 80 mg PO HS #30 tab 06/14/23 [Rx] Budesonide-Formot 160-4.5 Mcg [Symbicort 160-4.5 Mcg Inhaler] 2 puff INHALATION RT-BID #1 each 06/14/23 [Rx] Dapagliflozin Propanediol [Farxiga] 10 mg PO DAILY #30 tab 06/14/23 [Rx] Metoprolol Succinate (ER) [Toprol XL] 37.5 mg PO BID #60 tab 06/14/23 [Rx] Nicotine 21Mg/24Hr Patch [Habitrol] 1 patch TRANSDERM DAILY #14 patch 06/14/23 [Rx] Nitroglycerin Sl Tabs [Nitrostat] 0.4 mg SUBLINGUAL Q5M PRN #30 tab 06/14/23 [Rx] Prasugrel [Effient] 10 mg PO DAILY #30 tab 06/14/23 [Rx] Rivaroxaban [Xarelto] 20 mg PO W/SUPPER #0 06/14/23 [Rx] Spironolactone [Aldactone] 25 mg PO DAILY #30 tab 06/14/23 [Rx] Follow up Appointment(s)/Referral(s): Bimal Graf MD [STAFF PHYSICIAN] - 1 Week Yaima Mcgregor DO [Primary Care Provider] - 1 Week Dequan Potter DO [Doctor of Osteopathic Medicine] - 2 Weeks None,Stated [REFERRING] - 1-2 days Patient Instructions/Handouts: Heart Attack (DC), Atrial Flutter (DC), A-fib (Atrial Fibrillation) (DC), How to Stop Smoking (ED), Heart Catheterization (DC), Angio-Seal (DC) Discharge Disposition: HOME SELF-CARE
== END 2023-06-14 12:58 | disposition home or self-care (01) | DRG 247 ==
LOC: EC 17:29 → 2SICU 18:09
PROVIDERS: ADMIT Hospitalist; ATTEND Hospitalist
PROC: B2111ZZ Fluoroscopy of Multiple Coronary Arteries using Low Osmolar Contrast (ICD-10-PCS; principal; 2023-06-11 17:43)
PROC: 027035Z Dilation of Coronary Artery, One Artery with Two Drug-eluting Intraluminal Devices, Percutaneous Approach (ICD-10-PCS; principal; 2023-06-11 17:43)
PROC: 3E043XZ Introduction of Vasopressor into Central Vein, Percutaneous Approach (ICD-10-PCS; principal; 2023-06-11 17:43)
PROC: 4A023N7 Measurement of Cardiac Sampling and Pressure, Left Heart, Percutaneous Approach (ICD-10-PCS; principal; 2023-06-11 17:43)
DX: I21.19 ST elevation (STEMI) myocardial infarction involving other coronary artery of inferior wall (principal); I42.0 Dilated cardiomyopathy; I48.19 Other persistent atrial fibrillation; I47.20 Ventricular tachycardia, unspecified; G47.00 Insomnia, unspecified; F41.9 Anxiety disorder, unspecified; I95.9 Hypotension, unspecified; I08.1 Rheumatic disorders of both mitral and tricuspid valves; F10.21 Alcohol dependence, in remission; Z71.6 Tobacco abuse counseling; F17.210 Nicotine dependence, cigarettes, uncomplicated; I25.5 Ischemic cardiomyopathy; Z79.01 Long term (current) use of anticoagulants; J44.9 Chronic obstructive pulmonary disease, unspecified; Z28.310 Unvaccinated for COVID-19; Z28.21 Immunization not carried out because of patient refusal; Z79.899 Other long term (current) drug therapy; Z95.810 Presence of automatic (implantable) cardiac defibrillator; Z79.51 Long term (current) use of inhaled steroids; Z79.82 Long term (current) use of aspirin
CPT/HCPCS: 36415; 36600; 71045; 80048; 80053; 80061; 82805; 83735; 84484; 85025; 85610; 85730; 92978; 93005; 93306; 93458; 94640; 96374; 99285